=== PATIENT | male | born 1950 | race Caucasian/White ===

== ENCOUNTER 2022-01-28 12:15 | Outpatient (CLI) | payer MEDICARE, OTHER, SELFPAY ==
--- NOTE | ~2022-01-28 | XR_ITS ---
EXAMINATION: XR ankle LT 2V, XR foot LT 2V DATE: 01/28/2022 12:42 INDICATION: Left foot and ankle pain and swelling TECHNIQUE: 1. Anteroposterior and lateral view of the left ankle were obtained. 2. Dorsoplantar and lateral views of the left foot were obtained. COMPARISON: None. FINDINGS: Alignment of the left foot and ankle is normal. No fracture. Mild polyarticular osteoarthritis at the first metatarsophalangeal and a few tarsometatarsal and interphalangeal joints. Moderate-sized Achil les and plantar calcaneal spurs. No ankle joint effusion. Soft tissue swelling about the ankle, both medially and laterally. IMPRESSION: 1. No acute osseous abnormality. 2. Degenerative skeletal changes including mild polyarticular osteoarthritis in the left mid and fore foot and prominent calcaneal enthesophytes. Reviewed, dictated and finalized at location B. IMPRESSION: 1. No acute osseous abnormality. 2. Degenerative skeletal changes including mild polyarticular osteoarthritis in the left mid and forefoot and prominent calcaneal enthesophytes.
[2022-01-28 12:46] LABS: Basophils Absolute Auto 0.1 K/mm3 (0.0-0.1); Basophils Percent Auto 0.6 % (0.2-1.2); Eosinophils Absolute Auto 0.2 K/mm3 (0-0.3); Eosinophils Percent Auto 1.7 % (0-4.4); Hematocrit 36.2 % (42.0-52.0); Hemoglobin 12.7 g/dL (14.0-18.0); Immature Granulocyte Absolute 0.05 K/mm3 (0.00-0.031); Immature Granulocyte Percent A 0.5 % (0-0.5); Lymphocytes Absolute Auto 1.51 K/mm3 (0.9-3.2); Lymphocytes Percent Auto 14.2 % (18.3-44.2); Mean Corpuscular HGB Conc 35.1 g/dl (32-36); Mean Corpuscular Volume 88.3 fl (80-100); Mean Platelet Volume 9.4 fl (7.4-10.4); Monocytes Absolute Auto 1.2 K/mm3 (0.1-0.6); Monocytes Percent Auto 11.4 % (2.6-8.5); Neutrophils Absolute Auto 7.6 K/mm3 (1.3-6.7); Neutrophils Percent Auto 71.6 % (45.5-73.1); Platelet Count Result 306 k/mm3 (150-375); Red Cell Distribution Width 12.8 % (11.5-14.5); White Blood Count 10.6 K/mm3 (4.5-10.0)
[2022-01-28 13:02] LABS: Uric Acid 7.9 mg/dL (3.5-8.5)
== END 2022-01-28 12:16 | disposition home or self-care (01) ==
PROVIDERS: PCP Family Medicine; Visit Provider Nurse Practitioner Family
DX: M79.672 Pain in left foot (principal); M25.572 Pain in left ankle and joints of left foot; M19.072 Primary osteoarthritis, left ankle and foot; M77.32 Calcaneal spur, left foot
CPT/HCPCS: 36415; 73600; 73620; 84550; 85025

== ENCOUNTER 2022-03-16 20:48 | Observation (INO) | payer MEDICARE, OTHER, SELFPAY ==
--- NOTE | ~2022-03-16 | CT_ITS ---
EXAMINATION: CT abdomen pelvis wo con DATE: 03/16/2022 22:56 INDICATION: abd pain, vomiting, leukocytosis TECHNIQUE: Computed tomography (CT) of the abdomen and pelvis was performed without intravenous contr ast. Automated exposure control and iterative reconstruction technique were employed. The dose-length product was 688.49 mGy-cm. COMPARISON: None FINDINGS: Lower thorax: Unremarkable Liver: Normal. Biliary/Gallbladder: Gallbladder is normal. No bile duct dilation. Pancreas: No mass or duct dilation. Spleen: Normal. Adrenals:No mass. Kidneys: Right upper pole lesion too small to characterize but likely cyst. Right inferior pole hemor rhagic cyst. Left renal atrophy with hypodensities that are too small to characterize but likely repr esent cysts. GI tract: No small or large bowel dilation. Normal appendix. Diverticulosis without diverticulitis Mesentery/Peritoneum: No ascites, mass, or free air. Retroperitoneum: No mass. Atherosclerotic arterial calcifications. Pelvis: Bladder wall thickening, likely secondary to outlet obstruction from prostatomegaly. Soft Tissues: Soft tissues and body wall unremarkable. Bones: No acute osseous finding. IMPRESSION: No acute abdominopelvic process detected. Reviewed, dictated and finalized at location K.
[2022-03-16 21:03] VITALS: BP 106/79; PULSE 135; RESP 18; TEMP 36.5; O2SAT 100
[2022-03-16] MEDS: SODIUM CHLORIDE 0.9% IV 1,000 ML 999 ML IV CONT ×2 (21:42→23:49)
[2022-03-16 21:47] LABS: Basophils Absolute Auto 0.1 K/mm3 (0.0-0.1); Basophils Percent Auto 0.3 % (0.2-1.2); Hematocrit 45.9 % (42.0-52.0); Hemoglobin 14.8 g/dL (14.0-18.0); Immature Granulocyte Absolute 0.07 K/mm3 (0.00-0.031); Immature Granulocyte Percent A 0.4 % (0-0.5); Lymphocytes Absolute Auto 0.52 K/mm3 (0.9-3.2); Lymphocytes Percent Auto 3.1 % (18.3-44.2); Mean Corpuscular HGB Conc 32.2 g/dl (32-36); Mean Corpuscular Hemoglobin 28.8 pg (26-34); Mean Corpuscular Volume 89.5 fl (80-100); Mean Platelet Volume 9.7 fl (7.4-10.4); Monocytes Absolute Auto 1.1 K/mm3 (0.1-0.6); Monocytes Percent Auto 6.8 % (2.6-8.5); Neutrophils Absolute Auto 14.9 K/mm3 (1.3-6.7); Neutrophils Percent Auto 89.4 % (45.5-73.1); Platelet Count Result 375 k/mm3 (150-375); Red Blood Count 5.13 M/mm3 (4.6-6.20); Red Cell Distribution Width 13.9 % (11.5-14.5); White Blood Count 16.7 K/mm3 (4.5-10.0)
[2022-03-16 21:54] LABS: Alanine Aminotransferase 29 U/L (6-50); Albumin Level 5.6 g/dL (3.5-5.1); Alkaline Phosphatase 99 U/L (38-126); Anion Gap 18 mmol/L (8-16); Aspartate Amino Transferase 37 U/L (17-59); Bilirubin,Total 0.5 mg/dL (0.2-1.3); Blood Urea Nitrogen 24 mg/dL (9-20); Calcium 9.5 mg/dL (8.4-10.2); Carbon Dioxide 19 mmol/L (22-30); Chloride 102 mmol/L (98-107); Estimated CRCL calculation 23 ml/min; Estimated Glomerular Filt Rate 18; Glucose 195 mg/dL (65-110); Lipase 77 U/L (23-300); Potassium 4.2 mmol/L (3.4-5.0); Sodium 139 mmol/L (137-145)
[2022-03-16 22:11] VITALS: BP 134/79; PULSE 120; RESP 20; O2SAT 96
--- NOTE | 2022-03-16 22:21 | ED.NAVMDI ---
HPI - Nausea/Vomiting/Diarrhea General Chief complaint: Nausea/Vomiting/Diarrhea Stated complaint: Diarrhea (24 hours), vomiting Time Seen by Provider: 03/16/22 21:09 Source: patient Mode of arrival: ambulatory Limitations: no limitations History of Present Illness HPI Narrative: This is a 71 year old male that presents to the ER for vomiting and diarrhea. Ongoing for the last day. Reports he has not been able to keep anything down. Also reports myalgias. Denies fever, cough, dysuria, or hematochezia. Related Data Allergies Allergy/AdvReac Type Severity Reaction Status Date / Time NA Allergy Unknown Unknown Uncoded 03/07/22 08:18 NKA Allergy Unknown unk Uncoded 03/07/22 08:18 Review of Systems Review of Systems: CONSTITUTIONAL: Denies fever CARDIOVASCULAR: Denies chest pain RESPIRATORY: Denies dyspnea. GASTROINTESTINAL: Reports abdominal pain, nausea, vomiting, and diarrhea. GENITOURINARY: Denies dysuria or hematuria. MUSCULOSKELETAL: Reports myalgia. All systems reviewed & are unremarkable except as noted in HPI and below PMFSH Past Medical History Medical History (Updated 03/17/22 @ 00:07 by Margie Lezama PA-C) DM renal manif type II Hy kid NOS w cr kid I-IV Family History Family History Father Family history of lung cancer Mother Family history of cardiovascular disease Social History Social History Smoking packs per day: 3 Smoking cigarettes per day: 60.0 Years smoked: 32 Smoking pack-years: 96.00 Smoking status: Former smoker Tobacco type: cigarettes Second hand tobacco smoke exposure: No Smoking end date: 10/23/96 Alcohol intake: current Drinks per week: 10 Substance use: never Substance use type: does not use Gender identity (if verbalized by the patient): Male Sexual Orientation (if Verbalized by the Patient): Straight or Heterosexual Exam Narrative: GENERAL: Elderly, well-nourished, and in no acute distress. HEAD: Normocephalic, atraumatic. EYES: EOMI. ENT: Mucous membranes dry. CHEST: Clear to auscultation. No respiratory distress. No wheezes rales or rhonchi HEART: Regular rate and rhythm. No murmur heard. Normal peripheral pulses. ABDOMEN: Soft, nondistended, normal active bowel sounds. Mild tenderness to palpation throughout the abdomen, without guarding EXTREMITIES: Normal range of motion. No edema. SKIN: Warm, dry, no rash. NEURO: No focal deficits. Alert and oriented x3. PSYCH: Normal mood and affect Course Vital Signs Vital signs: Vital Signs Temperature 97.7 F 03/16/22 21:03 Pulse Rate 135 H 03/16/22 21:03 Respiratory Rate 18 03/16/22 21:03 Blood Pressure 106/79 03/16/22 21:03 Pulse Oximetry 100 03/16/22 21:03 Oxygen Delivery Room Air 03/16/22 21:03 Temperature 97.7 F 03/16/22 21:03 Pulse Rate 118 H 03/17/22 00:42 Respiratory Rate 16 03/17/22 00:42 Blood Pressure 106/67 03/17/22 00:42 Pulse Oximetry 100 03/17/22 00:42 Oxygen Delivery Room Air 03/16/22 21:03 MDM - Nausea/Vomiting/Diarrhea MDM Narrative Medical decision making narrative: Patient presents to the ER for nausea, vomiting and diarrhea. Present since yesterday. He is afebrile nontoxic-appearing. Tachycardic upon arrival, this normalized with IV fluid administration. CBC with leukocytosis to 16.7. Metabolic panel with evidence of dehydration and acute kidney injury. No concerning elevation in blood glucose. Influenza and COVID screens are negative. CT scan of the abdomen and pelvis is without acute findings. Patient will be admitted for further evaluation and management of dehydration and acute kidney injury. Spoke with hospitalist about patient and work-up who accepts admission Patient unable to give a urine sample at this time. Bladder scan did not show any evidence of retention. Patient refuses straight cath. Will continue to mon
[2022-03-16 22:25] VITALS: BP 108/81; PULSE 119; RESP 20; O2SAT 98
[2022-03-16 23:29] LABS: SARS-CoV-2 RNA PCR Negative
--- NOTE | 2022-03-16 23:41 | PC.NURSE ---
RN discussed with pt the need for a urine sample. Pt states If nothing goes in nothing can come out . Pt states I need something to drink in order to urinate . RN discussed with patient that he has gotten fluids pt still states I don't have the urge to urinate if I can get some water I should be able to go . Pt refused straight cath.
[2022-03-16 23:50] VITALS: BP 144/81; PULSE 118; RESP 20; O2SAT 98
[2022-03-17] VITALS (7 sets, daily range): BP systolic 106–134; BP diastolic 62–81; PULSE 80–118; RESP 16–18; TEMP 36.5–37.2; O2SAT 96–100
[2022-03-17 00:05] LABS: Influenza B QL RT-PCR Negative (Negative)
[2022-03-17 00:06] LABS: Influenza A QL RT-PCR Negative (Negative)
--- NOTE | 2022-03-17 01:24 | PC.NURSE ---
Pt still unable to urinate bladder scan done results 102ml.
[2022-03-17 03:11] LABS: Appearance Urine Clear (Clear); Bilirubin Urine 2+ (Negative); Blood Urine Trace-lysed (Negative); Color Urine Yellow (Yellow); Glucose Urine UA Negative (Negative); Ketones Urine Trace mg/dL (Negative); Leukocyte Esterase Ur Negative LEU/UL (Negative); Nitrate Urine Negative (Negative); Protein Urine 3+ mg/dL (Negative); Specific Grav Ur >= 1.030 (1.001-1.035); Urobilinogen Urine 0.2 mg/dL (<2.0)
[2022-03-17 03:31] LABS: Mucus Urine Few /lpf; Squamous Epithelial Cell Urine Moderate /hpf (Few); WBC Clumps Urine Present /HPF; WBC Urine 31-50 /hpf
[2022-03-17 03:33] LABS: Add Urine Microscopic? YES
[2022-03-17] MEDS: SODIUM CHLORIDE 0.9% IV 1,000 ML 125 ML IV CONT ×3 (03:35→20:19)
--- NOTE | 2022-03-17 04:07 | ADMGEN ---
This patient, Juanito Galeas, was admitted to [facility] Surg Room 312-01. Patient/family oriented to hospital policies and general routines including ID bracelet, bed and alarms, visiting hours, pain management, procedures, bathroom and other care routines, personal items, smoking policy, room service/diet, and visiting hours. Information on how to activate the Rapid Response Team has been discussed. Patient/Family are encouraged to report perceived risks to care and to ask questions if they do not understand what they are told or what they should do.
[2022-03-17 07:43] LABS: Glucose Point of Care 95 mg/dl (65-105)
[2022-03-17 08:09] LABS: Hematocrit 42.5 % (42.0-52.0); Hemoglobin 13.7 g/dL (14.0-18.0); Mean Corpuscular HGB Conc 32.2 g/dl (32-36); Mean Platelet Volume 9.4 fl (7.4-10.4); Platelet Count Result 293 k/mm3 (150-375); Red Blood Count 4.72 M/mm3 (4.6-6.20); White Blood Count 11.6 K/mm3 (4.5-10.0)
[2022-03-17 08:27] LABS: Anion Gap 13 mmol/L (8-16); Blood Urea Nitrogen 29 mg/dL (9-20); Calcium 8.1 mg/dL (8.4-10.2); Carbon Dioxide 19 mmol/L (22-30); Chloride 108 mmol/L (98-107); Estimated CRCL calculation 30 ml/min; Estimated Glomerular Filt Rate 24; Glucose 101 mg/dL (65-110); Potassium 4.3 mmol/L (3.4-5.0); Sodium 140 mmol/L (137-145)
[2022-03-17] MEDS: LEVOTHYROXINE SODIUM 100 MCG TABLET PO (09:14)
[2022-03-17] MEDS: LORATADINE 10 MG TABLET PO (09:15)
[2022-03-17] MEDS: PANTOPRAZOLE 40 MG TABLET PO (09:15)
[2022-03-17] MEDS: amLODIPine BESYLATE 5 MG TABLET PO (09:15)
--- NOTE | 2022-03-17 09:47 | PM.IMHP ---
H&P: HPI History of Present Illness Date/Time: 03/17/22 09:47 <Anne-Marie Parks PA-C - Last Filed: 03/17/22 10:28> Chief Complaint: Diarrhea <Anne-Marie Parks PA-C - Last Filed: 03/17/22 10:28> Narrative: Date of service: 03/17/2022 Juanito Galeas is a 71-year-old male with a history of type 2 diabetes mellitus, CKD stage III, hypertension, hypothyroidism, hyperlipidemia who presented to the emergency department on 03/16/2022 with complaints of vomiting and diarrhea. The patient states he had diarrhea for 24 hours. He states he had emesis for 20 hours it he could not keep anything down. He stated he became ?majorly dehydrated? and had ?head to toe muscle cramps. Because of this, he felt he had to seek emergency care. On presentation to the ED, he was afebrile, tachycardic, labs revealed leukocytosis and acute kidney injury on chronic kidney disease. CT of the abdomen/pelvis showed no acute abdominopelvic process. He has been admitted to the hospitalist service for observation. On my encounter, but he is beginning to feel better. No further episodes of emesis, though he has not eaten anything yet. He reports 2 episodes of loose stools so far today. Denies blood in his stool. Myalgias have resolved. Supervising physician for this history and physical is Dr. Janneth Romero. <Anne-Marie Parks PA-C - Last Filed: 03/17/22 10:28> Review of Systems Review of Systems: All systems reviewed with pertinent positives and negatives as per HPI. Additionally, patient denies fevers or chills. Denies shortness of breath, chest pain, palpitations. No dizziness, lightheadedness, weakness. He endorses chronic postnasal drip occasionally has cough related to this although no recent cough or worsened congestion. He denies abdominal pain. Denies sore throat. No headache. No joint pains. He denies dysuria, hematuria, urgency, or frequency. <Anne-Marie Parks PA-C - Last Filed: 03/17/22 10:28> PMFSH Past Medical History Medical History: Medical History (Updated 03/18/22 @ 16:24 by Anne-Marie Parks PA-C) Adult hypothyroidism CKD (chronic kidney disease) DM renal manif type II Hy kid NOS w cr kid I-IV Hyperlipidemia Hypertension Seasonal allergies <Anne-Marie Parks PA-C - Last Filed: 03/17/22 10:28> Surgical History Surgical History: Surgical History (Updated 03/17/22 @ 10:04 by Anne-Marie Parks PA-C) History of tonsillectomy and adenoidectomy <Anne-Marie Parks PA-C - Last Filed: 03/17/22 10:28> Family History Family History: Family History (Updated 03/17/22 @ 13:15 by Radha Juárez RN) Father Family history of lung cancer Mother Heart attack Grandparent Diabetes mellitus Sibling Diabetes mellitus <Anne-Marie Parks PA-C - Last Filed: 03/17/22 10:28> Social History Social History: Social History (Updated 03/17/22 @ 10:06 by Anne-Marie Parks PA-C) Social History: Mr. Galeas lives at home with his . He is independent in his daily activities. He is retired. His PCP is Dr. Koroma. He designates his , Ilana, to be his surrogate decision maker. He would like to be a full code. Smoking packs per day: 2 Smoking cigarettes per day: 40.0 Years smoked: 32 Smoking pack-years: 64.00 Smoking status: Former smoker Tobacco type: cigarettes Second hand tobacco smoke exposure: No Smoking end date: 10/23/96 Alcohol intake: current Alcohol use details: 4-5 beers/week Substance use: never Substance use type: does not use Living arrangements: with family Spiritual care concerns: No <Anne-Marie Parks PA-C - Last Filed: 03/17/22 10:28> Meds Home Medications and Allergies Home medications: Home Medications Medication Instructions Recorded Confirmed Type amlodipine 5 mg tablet 5 mg PO DAILY #90 tabs 08/09/21 03/17/22 Rx atorvastatin 10 mg tablet 10 mg PO DAILY #90 tabs 08/09/21 03/17/22 Rx levothyroxine 100 mcg tablet 100
[2022-03-17 11:40] LABS: Glucose Point of Care 94 mg/dl (65-105)
[2022-03-17 16:42] LABS: Glucose Point of Care 83 mg/dl (65-105)
[2022-03-17 20:31] LABS: Glucose Point of Care 92 mg/dl (65-105)
[2022-03-17] MEDS: ATORVASTATIN 10 MG TABLET PO (20:54)
[2022-03-17] MEDS: ASPIRIN 81 MG CHEWABLE TABLET PO (20:54)
[2022-03-18] MEDS: SODIUM CHLORIDE 0.9% IV 1,000 ML 125 ML IV CONT ×2 (02:00→05:47)
[2022-03-18] MEDS: LEVOTHYROXINE SODIUM 100 MCG TABLET PO (05:48)
[2022-03-18 06:00] VITALS: BP 132/76; PULSE 76; RESP 18; TEMP 36.6; O2SAT 98
[2022-03-18 07:05] LABS: Hemoglobin 11.8 g/dL (14.0-18.0); Mean Corpuscular HGB Conc 31.9 g/dl (32-36); Mean Corpuscular Hemoglobin 28.9 pg (26-34); Mean Corpuscular Volume 90.5 fl (80-100); Mean Platelet Volume 9.6 fl (7.4-10.4); Platelet Count Result 237 k/mm3 (150-375); Red Blood Count 4.09 M/mm3 (4.6-6.20); Red Cell Distribution Width 14.1 % (11.5-14.5); White Blood Count 6.2 K/mm3 (4.5-10.0)
[2022-03-18 07:17] LABS: Anion Gap 11 mmol/L (8-16); Blood Urea Nitrogen 19 mg/dL (9-20); Calcium 7.1 mg/dL (8.4-10.2); Carbon Dioxide 18 mmol/L (22-30); Chloride 111 mmol/L (98-107); Estimated CRCL calculation 48 ml/min; Estimated Glomerular Filt Rate 50; Glucose 95 mg/dL (65-110); Potassium 3.5 mmol/L (3.4-5.0); Sodium 140 mmol/L (137-145)
[2022-03-18 07:21] LABS: Magnesium 1.2 mg/dL (1.6-2.3)
[2022-03-18 07:55] LABS: Glucose Point of Care 93 mg/dl (65-105)
[2022-03-18] MEDS: MAGNESIUM SULF 2 GM/WATER 50ML 2 GM/50 ML BAG IVPB (08:57)
[2022-03-18] MEDS: PANTOPRAZOLE 40 MG TABLET PO (08:57)
[2022-03-18] MEDS: amLODIPine BESYLATE 5 MG TABLET PO (08:58)
[2022-03-18] MEDS: LORATADINE 10 MG TABLET PO (08:58)
[2022-03-18 11:44] LABS: Glucose Point of Care 89 mg/dl (65-105)
[2022-03-18 13:52] LABS: Magnesium 1.9 mg/dL (1.6-2.3)
[2022-03-18 14:00] VITALS: BP 146/63; PULSE 80; RESP 20; TEMP 36.3; O2SAT 98
--- NOTE | 2022-03-18 14:25 | P.DS_ITS ---
DS: Admitting Diagnosis Discharge Date 03/18/2022 <Anne-Marie DevonLauren Parks PA-C - Last Filed: 03/20/22 08:51> Admitting Diagnosis BRIELLE <Anne-Marie JLauren Parks PA-C - Last Filed: 03/20/22 08:51> DS: Discharge Diagnosis Discharge Diagnosis (1) Acute on chronic kidney failure: Code(s): N17.9 - Acute kidney failure, unspecified; N18.9 - Chronic kidney disease, unspecified <Anne-Marie Parks PA-C - Last Filed: 03/20/22 08:51> Status: Acute <Anne-Marie OsorioHUGH MoreC - Last Filed: 03/20/22 08:51> Assessment and Plan: Baseline creatinine 1.2-1.4. Creatinine elevated to 3.4 on presentation likely secondary to dehydration from N/V/D. * Renal function improved following IV fluid rehydration * Metformin and lisinopril held initially but resumed on discharge following improvement in renal function * Creatinine returned to baseline <Anne-Marie Parks PA-C - Last Filed: 03/20/22 08:51> (2) Nausea vomiting and diarrhea: Code(s): R11.2 - Nausea with vomiting, unspecified; R19.7 - Diarrhea, unspecified <Anne-Marie Parks PA-C - Last Filed: 03/20/22 08:51> Status: Acute <Anne-Marie OsorioHUGH MoreC - Last Filed: 03/20/22 08:51> Assessment and Plan: Patient presented after 24 hours of nausea, vomiting and diarrhea * CT abdomen/pelvis showed no acute findings * Patient with mild leukocytosis that resolved without intervention. Remained afebrile * COVID and influenza negative * Suspect viral etiology * Diet was advanced and he was able to tolerate oral intake. <Anne-Marie Parks PA-C - Last Filed: 03/20/22 08:51> (3) Abnormal urinalysis: Code(s): R82.90 - Unspecified abnormal findings in urine <Anne-Marie Parks PA-C - Last Filed: 03/20/22 08:51> Status: Acute <Anne-Marie DevonLauern Parks PA-C - Last Filed: 03/20/22 08:51> Assessment and Plan: UA slightly abnormal on presentation however patient was asymptomatic * Urine culture with growth of mixed hussein * No treatment required <Anne-Marie JGIULIANA More-C - Last Filed: 03/20/22 08:51> (4) Type 2 diabetes mellitus without complication, without long-term current use of insulin: Code(s): E11.9 - Type 2 diabetes mellitus without complications <Anne-Marie OsorioLauren Parks PA-C - Last Filed: 03/20/22 08:51> Status: Acute <Anne-Marie Jonesjacinto PA-C - Last Filed: 03/20/22 08:51> Assessment and Plan: A1c 5.5. Blood sugars well controlled during admission * Managed with Accu-Cheks ACHS, sliding scale insulin, hypoglycemic protocol * Metformin was held but resumed on discharge <Anne-Marie Parks PA-C - Last Filed: 03/20/22 08:51> (5) Hypertension: Code(s): I10 - Essential (primary) hypertension <Anne-Marie JLauren Parks PA-C - Last Filed: 03/20/22 08:51> Status: Acute <Anne-Marie OsorioLauren Parks PA-C - Last Filed: 03/20/22 08:51> Assessment and Plan: Blood pressure reviewed and were well controlled * Continue amlodipine * Lisinopril resumed <Anne-Marie Parks PA-C - Last Filed: 03/20/22 08:51> (6) Adult hypothyroidism: Code(s): E03.9 - Hypothyroidism, unspecified <Anne-Marie JLauren Parks PA-C - Last Filed: 03/20/22 08:51> Status: Acute <Anne-Marie OsorioLauren Parks PA-C - Last Filed: 03/20/22 08:51> Assessment and Plan: TSH within normal limits * Continue levothyroxine <Anne-Marie Parks PA-C - Last Filed: 03/20/22 08:51> (7) Hypomagnesemia: Code(s): E83.42 - Hypomagnesemia <Anne-Marie DevonLauren Parks PA-C - Last Filed: 03/20/22 08:51> Status: Acute <Anne-Marie DevonLauren Parks PA-C -
--- NOTE | 2022-03-18 14:25 | PM.DS ---
DS: Admitting Diagnosis Discharge Date 03/18/2022 <HUGH BerryC - Last Filed: 03/20/22 08:51> Admitting Diagnosis BRIELLE <Anne-Marie JHUGH MoreC - Last Filed: 03/20/22 08:51> DS: Discharge Diagnosis Discharge Diagnosis (1) Acute on chronic kidney failure: Code(s): N17.9 - Acute kidney failure, unspecified; N18.9 - Chronic kidney disease, unspecified <HUGH BerryC - Last Filed: 03/20/22 08:51> Status: Acute <Anne-Marie JHUGH MoreC - Last Filed: 03/20/22 08:51> Assessment and Plan: Baseline creatinine 1.2-1.4. Creatinine elevated to 3.4 on presentation likely secondary to dehydration from N/V/D. Renal function improved following IV fluid rehydration Metformin and lisinopril held initially but resumed on discharge following improvement in renal function Creatinine returned to baseline <HUGH BerryC - Last Filed: 03/20/22 08:51> (2) Nausea vomiting and diarrhea: Code(s): R11.2 - Nausea with vomiting, unspecified; R19.7 - Diarrhea, unspecified <HUGH BerryC - Last Filed: 03/20/22 08:51> Status: Acute <Anne-Marie OsorioHUGH MoreC - Last Filed: 03/20/22 08:51> Assessment and Plan: Patient presented after 24 hours of nausea, vomiting and diarrhea CT abdomen/pelvis showed no acute findings Patient with mild leukocytosis that resolved without intervention. Remained afebrile COVID and influenza negative Suspect viral etiology Diet was advanced and he was able to tolerate oral intake. <HUGH BerryC - Last Filed: 03/20/22 08:51> (3) Abnormal urinalysis: Code(s): R82.90 - Unspecified abnormal findings in urine <HUGH BerryC - Last Filed: 03/20/22 08:51> Status: Acute <HUGH BerryC - Last Filed: 03/20/22 08:51> Assessment and Plan: UA slightly abnormal on presentation however patient was asymptomatic Urine culture with growth of mixed hussein No treatment required <Anne-Marie Parks GIULIANA-C - Last Filed: 03/20/22 08:51> (4) Type 2 diabetes mellitus without complication, without long-term current use of insulin: Code(s): E11.9 - Type 2 diabetes mellitus without complications <Anne-Marie Parks PA-C - Last Filed: 03/20/22 08:51> Status: Acute <Anne-Marie Parks, PA-C - Last Filed: 03/20/22 08:51> Assessment and Plan: A1c 5.5. Blood sugars well controlled during admission Managed with Accu-Cheks ACHS, sliding scale insulin, hypoglycemic protocol Metformin was held but resumed on discharge <Anne-Marie Jonesjacinto PA-C - Last Filed: 03/20/22 08:51> (5) Hypertension: Code(s): I10 - Essential (primary) hypertension <Anne-Marie Parks, PA-C - Last Filed: 03/20/22 08:51> Status: Acute <Anne-Marie Parks, PA-C - Last Filed: 03/20/22 08:51> Assessment and Plan: Blood pressure reviewed and were well controlled Continue amlodipine Lisinopril resumed <Anne-Marie Parks PA-C - Last Filed: 03/20/22 08:51> (6) Adult hypothyroidism: Code(s): E03.9 - Hypothyroidism, unspecified <Anne-Marie Parks PA-C - Last Filed: 03/20/22 08:51> Status: Acute <Anne-Marie Parks, PA-C - Last Filed: 03/20/22 08:51> Assessment and Plan: TSH within normal limits Continue levothyroxine <Anne-Marie Parks, PA-C - Last Filed: 03/20/22 08:51> (7) Hypomagnesemia: Code(s): E83.42 - Hypomagnesemia <Anne-Marie Parks, PA-C - Last Filed: 03/20/22 08:51> Status: Acute <Anne-Marie Parks, PA-C - Last Filed: 03/20/22 08:51> Assessment and Plan: Magnesium was low, likely secondary to diarrhea Replaced and monitored. Levels improved <Anne-Marie Parks PA-C - Last Filed: 03/20/22 08:51> DS: Summary Hospital Course Hospital Course: Date of admission: 03/16/2022 Date of discharge: 03/18/2022 Juanito Galeas is a 71-year-old male with a history of
== END 2022-03-18 14:50 | disposition home or self-care (01) ==
LOC: ANHED 03-17 01:32 → ANH3MEDSUR 03-17 02:26
PROVIDERS: Physician Assistant; Admitting Provider Internal Medicine; Emergency Provider Emergency Medicine; PCP Family Medicine; Visit Provider Family Medicine
DX: R11.2 Nausea with vomiting, unspecified (principal); N17.9 Acute kidney failure, unspecified; N18.30 Chronic kidney disease, stage 3 unspecified; E11.22 Type 2 diabetes mellitus with diabetic chronic kidney disease; I12.9 Hypertensive chronic kidney disease with stage 1 through stage 4 chronic kidney disease, or unspecified chronic kidney disease; E03.9 Hypothyroidism, unspecified; E78.5 Hyperlipidemia, unspecified; Z87.891 Personal history of nicotine dependence; R82.90 Unspecified abnormal findings in urine; E83.42 Hypomagnesemia; Z20.822 Contact with and (suspected) exposure to COVID-19
CPT/HCPCS: 36415; 74176; 80048; 80053; 81001; 82948; 83690; 83735; 85025; 85027; 87086; 87088; 87502; 96360; 96361; 96365; 99285; A9270; C9803; G0378; J3475; J7030; U0003; U0005

== ENCOUNTER 2025-01-23 04:45 | Emergency (ER) | payer MEDICARE, OTHER, SELFPAY ==
--- NOTE | ~2025-01-23 | XR_ITS ---
Clinical Indication: Cough PA and lateral views of the chest: Comparison: None Findings: The lungs are clear, without evidence of focal consolidation or pleural effusion. Cardiome diastinal silhouette is within normal limits. Bones and soft tissues are unremarkable. Impression: Normal chest. Reviewed, dictated and finalized at location . Impression: Normal chest.
[2025-01-23 04:50] VITALS: BP 165/82; PULSE 86; RESP 20; TEMP 36.4; O2SAT 96
--- NOTE | 2025-01-23 04:52 | ED.SOB ---
HPI - SOB/Dyspnea General Chief Complaint: Upper Respiratory Infection Stated Complaint: cough, congestion, short of breath Time Seen by Provider: 01/23/25 04:56 History of Present Illness HPI Narrative: 74-year-old male with history of diabetes presenting to the emergency department with cough and congestion for last several days. He states that he has tried some Mucinex at home a couple hours ago without any relief of symptoms. Endorses a cough productive of clear mucus. Endorses some shortness of breath with a cough but no shortness of breath at rest or with exertion. No chest pain or chest pressure. No nausea or vomiting. He was otherwise in his normal state of health. No fever or chills. Denies any abdominal pain or back pain. Does not smoke. No history of COPD or asthma to his knowledge. Has not taken anything else besides the decongestant at home. Related Data Home Medications ?Medication ?Instructions ?Recorded ?Confirmed ?Last Taken ?Type Adult Low Dose Aspirin 81 mg PO DAILY 03/17/22 07/30/24 03/16/22 History Cinnamon 2,000 mg PO DAILY 03/17/22 07/30/24 03/16/22 History Fish Oil 4,800 mg PO DAILY 03/17/22 07/30/24 03/16/22 History Move Free Adormo 2 tablet PO DAILY 03/17/22 07/30/24 03/16/22 History Tart Gonzales Extract 1,000 mg PO DAILY 03/17/22 07/30/24 03/16/22 History Vitamin B-12 5,000 mcg PO DAILY 03/17/22 07/30/24 03/16/22 History cetirizine 10 mg capsule (Zyrtec) 10 mg PO DAILY 03/17/22 07/30/24 03/16/22 History Allergies Allergy/AdvReac Type Severity Reaction Status Date / Time No Known Allergies Allergy Verified 01/23/25 04:46 Review of Systems Review of Systems: As reviewed above in HPI [facility] Past Medical History Medical History Seasonal allergies Hyperlipidemia Hypertension CKD (chronic kidney disease) Hy kid NOS w cr kid I-IV DM renal manif type II Adult hypothyroidism Surgical History Surgical History History of tonsillectomy and adenoidectomy Family History Family History Father Family history of lung cancer Mother Heart attack Grandparent Diabetes mellitus Sibling Diabetes mellitus Social History Social History Social History: Mr. Galeas lives at home with his . He is independent in his daily activities. He is retired. His PCP is Dr. Koroma. He designates his , Ilana, to be his surrogate decision maker. He would like to be a full code. Smoking packs per day: 2 Smoking cigarettes per day: 40.0 Years smoked: 32 Smoking pack-years: 64.00 Smoking status: Former smoker Tobacco type: cigarettes Second hand tobacco smoke exposure: No Smoking end date: 10/23/96 Alcohol intake: current Alcohol use details: 4-5 beers/week Substance use: never Substance use type: does not use Do You Feel Safe in your Home?: Yes Lack of Transportation: No Lack of Food: Never True Current Housing: I Have Housing Concerned About Future Housing: No Difficulty Paying Gas/Electric Bills: No Difficulty Paying for Meds: No Currently Unemployed: YES Education: Don't Know Difficulty w/ Childcare or Family Care: No Living arrangements: with family Occupation/Education: retired Gender identity (if verbalized by the patient): Male Sexual Orientation (if Verbalized by the Patient): Straight or Heterosexual Spiritual care concerns: No Exam Narrative: GENERAL: [Well-appearing, well-nourished, and in no acute distress.] HEAD: [Normocephalic, atraumatic.] EYES: [PERRLA and EOMI.] ENT: Nares clear, no rhinorrhea or epistaxis. Mucous membranes moist. NECK: Supple. CHEST: [Clear to auscultation. No respiratory distress.] HEART: [Regular rate and rhythm]. No murmur heard. [Normal peripheral pulses.] ABDOMEN: [Soft, nondistended], [nontender], [No rigidity or guarding] EXTREMITIES: Normal range of motion. [No edema.] SKIN: Warm, dry, no rash. NEURO: [No focal deficits]. Alert and oriented [x3.] PSYCH: [Normal mood and affect.] Course Vital Signs Vital signs: Vital Signs Temperature 36.4 C L 01/23/25 04:50 Pulse Rate 86 01/23/25 04:50 Respiratory Rate 20 01/23/25 04:50 Blood Pressure 165/82 H 01/23/25 04:50 Pulse Oximetry 96 01/23/25 04:50 Oxygen Delivery Room Air 01/23/25 04:50 Temperature 36.4 C L 01/23/25 04:50 Pulse Rate 64 01/23/25 05:16 Respiratory Rate 18 01/23/25 05:16 Blood Pressure 136/73 01/23/25 05:16 Pulse Oximetry 95 01/23/25 05:16 Oxygen Delivery Room Air 01/23/25 05:08 MDM - SOB/Dyspnea MDM Narrative Medical decision making narrative: 74-year-old male with a past medical history including diabetes and chronic kidney disease, hypertension. He presents today with cough and congestion symptoms. Symptoms going on for several days including a productive cough of clear sputum. Endorses shortness of breath when he coughs. No shortness of breath at rest or with exertion. No chest pain or chest pressure. He is otherwise well-appearing not any acute distress. Vital signs were obtained he has a pulse ox of 95% on room air, heart rate in the 80s, blood pressure on the elevated side but has a history of hypertension. Clear breath sounds throughout without any wheezing, rhonchi or rales. Differential includes upper respiratory infection, viral syndrome such as COVID or influenza, RSV, lower respiratory tract infection such as pneumonia or bronchitis. Will evaluate him with multiple views of the chest and viral panel swabs obtained. He was given pseudoephedrine and Claritin for symptom control and re-evaluated. Chest x-ray shows no acute cardiopulmonary proces and a normal chest. COVID flu and RSV swabs were negative. Patient likely has another viral cause to his upper respiratory infection and he can be safely discharged home at this time and was provided some treatments to try at home and instructions to follow up with his regular doctor. Medical Records Attestation: I reviewed the patient's medical records. Lab Data Attestation: I reviewed the patient's lab results. Labs: Lab Results 01/23/25 Range/Units 04:57 Influenza A (RT-PCR) Negative (Negative) Influenza B (RT-PCR) Negative (Negative) RSV (RT-PCR) Negative (Negative) SARS-CoV-2 RNA (RT-PCR) Negative (Negative) Imaging Data Attestation: I personally reviewed and interpreted this imaging study as follows: My impression: Impressions Chest X-Ray 01/23/25 06:13 Impression: Normal chest. Discharge Plan Discharge Clinical Impression: Acute upper respiratory infection Patient Disposition: Home, Self-Care Condition: Stable Instructions: Antibiotic Form, Upper Respiratory Infection (ED) Additional Instructions: Your chest x-ray does not show any pneumonia or any active disease in the chest. Your viral swabs are negative for COVID and flu. You likely have another viral pathogen causing an upper respiratory infection and we will send you home with some symptomatic treatments. Take Tylenol and ibuprofen for any fevers or myalgias. Call your regular doctor for follow-up appointment. Return with any emergent concerns. Patient Language: Danish Prescriptions: New benzonatate 200 mg capsule 200 mg PO TID PRN (Reason: cough) Qty: 20 0RF fluticasone propionate [Flonase Allergy Relief] 50 mcg/actuation spray,suspension 1 spray intranasal BID Qty: 16 0RF Rx Instructions: administer into each nostril No Action Adult Low Dose Aspirin 81 mg PO DAILY Zyrtec 10 mg Capsule 10 mg PO DAILY Cinnamon 2,000 mg PO DAILY Fish Oil 4,800 mg PO DAILY Move Free Joint Health 2 tablet PO DAILY Tart Gonzales Extract 1,000 mg PO DAILY Vitamin B-12 5,000 mcg PO DAILY fluticasone propionate 50 mcg/actuation spray,suspension See Rx Instructions .ROUTE .COMPLEX Qty: 16 5RF Dose Instruction: INSTILL 1 SPRAY INRANASALLY DAILY INTO EACH NOSTRIL Rx Instructions: INSTILL 1 SPRAY INRANASALLY DAILY INTO EACH NOSTRIL lisinopril 20 mg tablet 20 mg PO BID Qty: 180 2RF metformin 500 mg tablet 500 mg PO BID Qty: 180 2RF atorvastatin 10 mg tablet 10 mg PO DAILY Qty: 90 2RF omeprazole 20 mg capsule,delayed release(DR/EC) 20 mg PO DAILY Qty: 90 2RF amlodipine 5 mg tablet 5 mg PO DAILY Qty: 90 2RF metoprolol succinate 25 mg tablet extended release 24 hr 25 mg PO DAILY Qty: 90 2RF levothyroxine 100 mcg tablet 100 mcg PO DAILY Qty: 90 2RF Follow-up/Referrals: Piero Koroma MD [Primary Care Provider] - Time of Disposition: 06:18
[2025-01-23 04:58] VITALS: O2SAT 98
[2025-01-23] MEDS: LORATADINE 10 MG TABLET PO (05:04)
[2025-01-23] MEDS: PSEUDOEPHEDRINE HCL 30 MG TABLET PO (05:04)
[2025-01-23 05:08] VITALS: BP 136/76; PULSE 71; PULSE 76; RESP 22; O2SAT 96; O2SAT 98
[2025-01-23 05:16] VITALS: BP 136/73; PULSE 64; RESP 18; O2SAT 95
--- OUTSIDE RECORDS SUMMARY | 2025-01-23 05:30 | XMS_ITS | Patient Health Record ---
Author Organization [facility] Address [address] [place] [address] Care Team Providers Care Assembler Adjuster Name Role Phone Zach Davidson MD Primary Care Provider Edgar Danilo Vicente Unavailable [phone] Reason For Referral No Information Medications Medication SIG (Take, Route, Frequency, Duration) Notes Start Date End Date Status Aspirin 81 MG 1 tablet Orally Once a day for 30 day(s) Active Cetirizine HCl 10 MG 1 tablet Orally Onc e a day for 30 day(s) Active Vitamin B12 1000 MCG 1 tablet Orally Onc e a day for 30 day(s) Active Omeprazole 20 MG 1 capsule Orally Onc e a day for 30 day(s) Active Fish Oil 1000 MG 1 capsule Orally Onc e a day for 30 day(s) Active metFORMIN HCl 500 MG 1 tablet with meals Orally Twice a day for 30 day(s) Active Cinnamon 500 MG bid Orally pt takes 1,000mg bid Active Atorvastatin Calcium 10 MG 1 tablet Oral ly Once a day for 30 day(s) Active Levothyroxine Sodium 112 MCG 1 tablet on an empty stomach in the morning Orally Once a day for 30 day(s) Active amLODIPine Besylate 5 MG 1 tablet Orally Once a day for 30 day(s) Active Lisinopril 20 MG 1 tablet Orally Once a day for 30 day(s) Active Niacin 500 MG 1 tablet with food Orally Once a day for 30 day(s) Active Move Free Joint [facility] Advance - as directed Orally Active Social History Tobacco Use: Social History Observation Description Date Details (start date - stop date) Former Smoker NA - NA Tobacco Use/Smoking Question Answer Notes Are you a former smoker Alcohol Screen Question Answer Notes Did you have a drink contain ing alcohol in the past year? Yes How often did you have a dri nk containing alcohol in the past year? 2 to 3 times a week (3 points) Points 3 Interpretation Negative Problems Problem Type SNOMED Code ICD Code Onset Dates Problem Status W/U Status Risk Notes Problem Type II diabetes mellitus without complication (960860207) Type 2 diabetes mellitus without complications (E11.9) Active confirmed Problem Mixed hyperlipidemia (737203633) Mixed hyperlipidemia (E78.2) Active confirmed Problem Essential hypertension (45353102) Essential (primary) hypertension (I10) Active confirmed Plan Of Treatment No Information Insurance Providers Payer Name Payer Address Payer Phone Subscriber Number Group Number Insured Name Patient Relationship to Insured Coverage Start Date Coverage End Date MEDICARE PART B [address] [address] [place] [phone] [id number] Juanito Galeas Self - patient is the insured Aet [address] [address] [place] [phone] [id number] Juanito Galeas Self - patient is the insured Medical (General) History Medical History History ICD Code Hypertension, benign Diabetes mellitus Hyperlipidemia Hypothyroidism Surgical History Surgery Date(Month/Year)
[2025-01-23 05:42] LABS: Influenza A QL RT-PCR Negative (Negative); Influenza B QL RT-PCR Negative (Negative); RSV RNA, RT-PCR Negative (Negative); SARS-CoV-2 RNA PCR Negative (Negative)
[2025-01-23 06:14] VITALS: BP 141/66; PULSE 63; RESP 17; O2SAT 97
== END 2025-01-23 06:32 | disposition home or self-care (01) ==
PROVIDERS: Emergency Provider Student in an Organized Health Care Education/Training Program; PCP Family Medicine
DX: J06.9 Acute upper respiratory infection, unspecified (principal); E78.5 Hyperlipidemia, unspecified; I12.9 Hypertensive chronic kidney disease with stage 1 through stage 4 chronic kidney disease, or unspecified chronic kidney disease; E11.22 Type 2 diabetes mellitus with diabetic chronic kidney disease; N18.9 Chronic kidney disease, unspecified; E03.9 Hypothyroidism, unspecified; Z87.891 Personal history of nicotine dependence; Z20.822 Contact with and (suspected) exposure to COVID-19
CPT/HCPCS: 71046; 87637; 99283; A9270

== ENCOUNTER 2025-05-30 13:08 | Emergency (ER) | payer MEDICARE, SELFPAY ==
[2025-05-30] VITALS (12 sets, daily range): BP systolic 130–150; BP diastolic 73–106; PULSE 81–88; RESP 16–28; TEMP 36.4; O2SAT 94–98
--- NOTE | ~2025-05-30 | CT_ITS ---
EXAMINATION: CTA chest PE protocol DATE: 05/31/2025 12:55 INDICATION: Shortness of breath TECHNIQUE: Computed tomography (CT) pulmonary angiogram of the chest was performed with 100 mL Omnipa que-350 intravenous contrast. Additional 3D reconstructions utilizing coronal maximum intensity proje ction (MIP) were performed. Automated exposure control and iterative reconstruction technique were em ployed. The dose-length product was 693.99 mGy-cm. COMPARISON: None FINDINGS: Moderate respiratory motion in the bilateral mid to lower lungs which decreases sensitivity and speci ficity, significantly in the smaller subsegmental pulmonary arteries. There is also some scattered st reak artifact most notable along the superior segmental lingular pulmonary artery. No definitive pulm onary emboli identified.. Mild dependent atelectasis in the bilateral lower lobes. No pneumonia, pulm onary edema or pleural effusion. Heart size is normal. Atherosclerotic coronary artery calcification. No pericardial effusion. Thoracic aorta is normal in caliber with no dissection. No pathologically e nlarged thoracic lymphadenopathy. Small bilateral renal cysts. Moderate left renal atrophy with smal l regions of more focal cortical scarring. Severe lower cervical and moderate thoracic spondylosis. IMPRESSION: 1. No definitive pulmonary emboli or other acute cardiopulmonary disease. Sensitivity for pulmonary e mboli is significantly limited in the subsegmental pulmonary arteries in the mid to lower lungs due t o respiratory motion. 2. Moderate left renal atrophy. Reviewed, dictated and finalized at location A. IMPRESSION: 1. No definitive pulmonary emboli or other acute cardiopulmonary disease. Sensi tivity for pulmonary emboli is significantly limited in the subsegmental pulmon gianni arteries in the mid to lower lungs due to respiratory motion. 2. Moderate left renal atrophy.
--- NOTE | ~2025-05-30 | CT_ITS ---
EXAMINATION: CT brain wo con DATE: 05/30/2025 15:14 INDICATION: Confusion TECHNIQUE: Computed tomography (CT) of the head was performed without intravenous contrast. The dose- length product was 1513.33 mGy-cm. Automated exposure control and iterative reconstruction technique were employed. COMPARISON: None FINDINGS: There are geographic areas of hypodensity involving the white matter of the bilateral parie sallie and temporal lobes as well as the right basal ganglia. No evidence for intracranial hemorrhage. N o ventriculomegaly or midline shift. Basilar cisterns are patent. Paranasal sinuses and mastoids are pneumatized. Generalized atrophy. IMPRESSION: 1. Multiple areas of geographic hypodensity including the parietal and temporal lobes as well as the right basal ganglia. No significant mass effect or associated hemorrhage. Differential diagnosis incl udes subacute or chronic infarcts, encephalitis and neoplasm including metastatic disease. Recommend MRI brain with and without contrast. Reviewed, dictated and finalized at location A. IMPRESSION: 1. Multiple areas of geographic hypodensity including the parietal and temporal lobes as well as the right basal ganglia. No significant mass effect or associ ated hemorrhage. Differential diagnosis includes subacute or chronic infarcts, encephalitis and neoplasm including metastatic disease. Recommend MRI brain wit h and without contrast.
--- NOTE | ~2025-05-30 | XR_ITS ---
EXAMINATION: XR chest 2V DATE: 05/30/2025 15:01 INDICATION: Shortness of breath TECHNIQUE: PA and lateral views of the chest were obtained. COMPARISON: Chest radiograph dated 01/23/2025 FINDINGS: The lungs remain clear with no focal airspace opacities, pulmonary edema, pleural effusion or pneumot horax. The cardiomediastinal silhouette is normal. Mild thoracic spondylosis with chronic mild anteri or wedging of a few lower thoracic vertebral bodies. IMPRESSION: 1. No acute cardiopulmonary disease. Reviewed, dictated and finalized at location A.
--- OUTSIDE RECORDS SUMMARY | 2025-05-30 13:10 | XMS_ITS | Clinical Summary ---
Author Organization [facility] Address [address] [place] [id number] Care Team Providers Care Sales Engagement Executive Name Role Phone Piero Koroma MD Primary Care Provider [phone] Allergies No known active allergies Medications No known medications Encounters Date Type Department Care Team Description 05/30/2025 6:05 AM CDT - 05/30/2025 7:47 AM CDT Emergency [facility] [place] [address] Sven Hutchins MD Shortness Of Breath Discharge Disposition: Home or Self Care (Routine Discharge) 05/30/2025 Travel from Last 3 Months Social History Tobacco Use Types Packs/Day Years Used Date Smoking Tobacco: Former Cigarettes Smokeless Tobacco: Never Tobacco Cessation:Counseling Given: Not Answered Sex and Gender Information Value Date Recorded Sex Assigned at Not on file Legal Sex Male 5:54 AM CDT Gender Identity Not on file Sexual Orientation Not on file Last Filed Vital Signs Vital Sign Reading Time Taken Comments Blood Pressure 149/71 05/30/2025 6:35 AM CDT Pulse 80 05/30/2025 6:50 AM CDT Temperature 36.7 C (98.1 F) 05/30/2025 6:51 AM CDT Respiratory Rate 14 05/30/2025 6:50 AM CDT Oxygen Saturation 94% 05/30/2025 6:50 AM CDT Inhaled Oxygen Concentration - - Weight 96.8 kg (213 lb 6.5 oz) 05/30/2025 6:51 A M CDT Height 185.4 cm (6' 1) 05/30/2025 6:51 AM CDT Body Mass Index 28.16 05/30/2025 6:51 AM CDT Plan of Treatment Health Maintenance Due Date Last Done Comments Colorectal Cancer Screening Colonoscopy (10 Years) 1950 Hepatitis C 1968 DTaP, Tdap and Td Vaccines (1 - Tdap) 1969 AAA SCREENING 2015 Annual Medicare Wellness Visit 2015 RSV Immunization or 60+ Years (1 - 1-dose 75+ series) 2025 Pneumococcal Vaccine: 50+ Years Completed 06/23/2020, 06/21/2019 Zoster Vaccines Completed 09/13/2024, 07/01/2024 COVID-19 Vaccine Completed 02/13/2025, , 01/08/2024, Additional history exists Meningococcal B Vaccine Aged Out No l onger eligible based on patient's age to complete this topic Meningococcal Vaccine Aged Out No daniele annette eligible based on patient's age to complete this topic RSV Immunizations Under 20 Months Aged Out No longer eligible based on patient's age to complete this topic Procedures Procedure Name Priority Date/Time Associated Diagnosis Comments XR CHEST PORTABLE STAT 05/30/2025 7:1 9 AM CDT INFLUENZA A & B STAT 05/30/2025 6:42 AM CDT CORONAVIRUS (COVID 19) STAT 05/30/2025 6:42 AM CDT THYROXINE, FREE (FT4) STAT 05/30/2025 6:42 AM CDT THYROID STIM HORMONE TSH STAT 05/30/2025 6:42 AM CDT PRO-BRAIN NATRIURETIC PEPTIDE STAT 05/30/2025 6:42 AM CDT TROPONIN, QUANT STAT 05/30/2025 6:42 AM CDT BASIC METABOLIC PANEL STAT 05/30/2025 6:42 AM CDT CBC W/DIFF AUTOMATED STAT 05/30/2025 6:42 AM CDT ECG 12-LEAD Routine 05/30/2025 6:30 AM CDT from Last 3 Months Results * XR CHEST PORTABLE (05/30/2025 7:19 AM CDT) Anatomical Region Laterality Modality Chest Radiographic Suzy ging 05/30/2025 7:21 AM CDT Impressions 05/30/2025 7:22 AM CDT IMPRESSION: No acute findings Ordered By: SVEN HUTCHINS Interpreted By: Liu Scott MD, 05/30/2025 7:21 AM Narrative 05/30/2025 7:22 AM CDT [place] [id number] SINGLE VIEW OF THE CHEST Clinical history: Shortness of breath Comparison: None A single view of the chest demonstrates the cardiac silhouette to be mildly enlarged. The pulmonary vessels are normally distributed. The Lungs are clear. No consolidations or effusions are seen. Procedure Note Liu Scott MD - 05/30/2025 [place] [id number] SINGLE VIEW OF THE CHEST Clinical history: Shortness of breath Comparison: None A single view of the chest demonstrates the cardiac silhouette to bemildly enlarged. The pulmonary vessels are normally distributed. The Lungsare clear. No consolidations or effusions are seen. IMPRESSION: No acute findings Ordered By: SVEN HUTCHINS Interpreted By: Liu Scott MD, 05/30/2025 7:21 AM Sven Hutchins MD GENERAL IMAGING Final Result * CORONAVIRUS (COVID 19) (05/30/2025 6:42 AM CDT) CORONAVIRUS SARS COV 2 RNA NEGATIVE NEGATIVE 05/30/2025 7:31 AM CDT [facility] Comment: NEGATIVE RESULTS DO NOT RULE OUT COVID 19 AND SHOULD NOT BE USED THE SOLE BASIS FOR TREATMENT OR PATIENT MANAGEMENT DECISIONS, INCLUDING INFECTION CONTROL DECISIONS. NEGATIVE RESULTS SHOULD BE CONSIDERED IN THE CONTEXT OF A PATIENT'S RECENT EXPOSURES, HISTORY AND THE PRESENCE OF CLINICAL SIGNS AND SYMPTOMS CONSISTENT WITH COVID 19. THE ID NOW COVID-19 2.0 TEST HAS BEEN AUTHORIZED BY THE FDA UNDER EAU FOR USE BY AUTHORIZED LABORATORIES. PERFORMED BY NUCLEIC ACID AMPLIFICATION FOR MOLECULAR QUALITATIVE DETECTION OF SARS-COV-2. SPECIMEN TYPE NASAL 05/30/2025 6:48 AM CDT [facility] NASAL STRUCTURE / Unknown 05/30/2025 6:42 AM CDT Sven Hutchins MD MICROBIOLOGY - GENERAL ORDERABL ES Final Result Performing Organization Address City/[facility]/ZIP Co de Phone Number [facility] [address] [place] [id number], * PRO-BRAIN NATRIURETIC PEPTIDE (05/30/2025 6:42 AM CDT) PRO-B TYPE NATRIURETIC PEPTIDE 66 <450 PG/ML 05/30/2025 7:35 AM CDT [facility] Comment: CUT POINTS ESTABLISHED BY [employer] ON NT PROBNP (ICON) STUDY (2006). AGE INDEPENDENT: <300 PG/ML HAS A 99% NEGATIVE PREDICTIVE VALUE FOR EXCLUDING ACUTE CHF <50 YEARS: >450 PG/ML IS CONSISTENT WITH ACUTE CHF 50-75 YEARS: >900 PG/ML IS CONSISTENT WITH ACUTE CHF >75 YEARS: >1800 PG/ML IS CONSISTENT WITH ACUTE CHF IN PATIENTS WITH RENAL INSUFFICIENCY (GFR <60), >1200 PG/ML YIELDS A DIAGNOSTIC SENSITIVITY AND SPECIFICITY OF 89% AND 72% FOR ACUTE CHF. 05/30/2025 6:42 AM CDT us Sven Hutchins MD LABORATORY Final Result Performing Organization Address City/[facility]/ZIP Co de Phone Number [facility] [address] [place] [address], [place] [phone] * INFLUENZA A & B (05/30/2025 6:42 AM CDT) Pathologist [facility] SPECIMEN TYPE NASOPHARYNGEAL SWAB 05/30/2025 6:56 AM CDT [facility] INFLUENZA A NEGATIVE NEGATIVE 05/30/2025 7:32 AM CDT [facility] INFLUENZA B NEGATIVE NEGATIVE 05/30/2025 7:32 AM CDT [facility] Comment: Interpretation: Negative for Influenza A and B. A negative result does not exclude influenza virus infection. If influenza is circulating in your community, a diagnosis of influenza should be considered based on a patient's clinical presentation and empiric antiviral treatment should be considered, if indicated. If more conclusive testing is needed for hospitalized inpatients, follow-up confirmatory testing with RT-PCR requires a separate order. NASOPHARYNGEAL SWAB / Unknown 05/30/2025 6:42 AM CDT Sven Hutchins MD MICROBIOLOGY - GENERAL ORDERABL ES Final Result [facility] [address] [place] [address], [place] [phone] * (ABNORMAL) BASIC METABOLIC PANEL (05/30/2025 6:42 AM CDT) Pathologist [facility] GLUCOSE 100(H) 70 - 99 MG/DL 05/30/2025 7:35 AM CDT [facility] BUN 19(H) 7 - 18 MG/DL 05/30/2025 7:35 AM CDT [facility] CREATININE S/P/B 1.45(H) 0.7 - 1.3 MG/DL 05/30/2025 7:35 AM CDT [facility] SODIUM S/P/B 134(L) 136 - 145 MMOL/L 05/30/2025 7:35 AM CDT [facility] POTASSIUM S/P/B 3.8 3.5 - 5.1 MMOL/L 05/30/2025 7:35 AM CDT [facility] CHLORIDE S/P/B 103 97 - 115 MMOL/L 05/30/2025 7:35 AM CDT [facility] CO2 24.9 21 - 32 MMOL/L 05/30/2025 7:35 AM CDT [facility] CALCIUM S/P/B 9.7 8.5 - 10.1 MG/DL 05/30/2025 7:35 AM CDT [facility] ANION GAP 6.1 2 - 10 MMOL/L 05/30/2025 7:35 AM CDT [facility] BUN CREATININE RATIO 13.1 6 - 26 05/30/2025 7:35 AM CDT [facility] GFR ESTIMATE 50(L) >90 ML/MIN/1.7 3 M2 05/30/2025 7:35 AM CDT [facility] Comment: NOTE: eGFR is not calculated for patients <18 years of age or gender unknown. This is an estimated GFR calculation using the new CKD EPI creatinine equation without race and so does not require a correction factor for race. This estimated GFR should not be used for calculating drug doses. 05/30/2025 6:42 AM CDT us Sven Hutchins MD LABORATORY Final Result [facility] [address] [place] [address], * (ABNORMAL) CBC W/DIFF AUTOMATED (05/30/2025 6:42 AM CDT) WBC 8.84 4.5 - 11.0 x10'3/uL 05/30/2025 7:11 AM CDT [facility] RBC 4.83 4.70 - 6.10 x10'6/uL 05/30/2025 7:11 AM CDT [facility] HGB 14.4 14.0 - 18.0 G/DL 05/30/2025 7:11 AM CDT [facility] HCT 42.0(L) 43.0 - 54.0 % 05/30/2025 7:11 AM CDT [facility] MCV 87.0 80.0 - 94.0 FL 05/30/2025 7:11 AM CDT [facility] MCH 29.8 27.0 - 31.0 PG 05/30/2025 7:11 AM CDT [facility] MCHC 34.3 32.0 - 36.0 G/DL 05/30/2025 7:11 AM CDT [facility] RDW 12.7 11.5 - 14.5 % 05/30/2025 7:11 AM CDT [facility] PLT 280 130 - 400 x10'3/uL 05/30/2025 7:11 AM CDT [facility] MPV 9.5 9.3 - 12.2 FL 05/30/2025 7:11 AM CDT [facility] DIFFERENTIAL TYPE AUTOMATED DIFFERENTIAL 05/30/2025 7:11 AM CDT [facility] NEUTROPHILS % 67.5 % 05/30/2025 7:11 AM CDT [facility] LYMPHOCYTES % 17.4 % 05/30/2025 7:11 AM CDT [facility] MONOCYTES % 12.0 % 05/30/2025 7:11 AM CDT [facility] EOSINOPHILS 1.8 % 05/30/2025 7:11 AM CDT [facility] BASOPHILS 0.8 % 05/30/2025 7:11 AM CDT [facility] IMMATURE GRANS % 0.5 % 05/30/20 7:11 AM CDT [facility] ABS. NEUTROPHILS 5.97 1.80 - 7.70 x10'3/uL 05/30/2025 7:11 AM CDT [facility] ABS. LYMPHOCYTES 1.54 1.00 - 4.80 x10'3/uL 05/30/2025 7:11 AM CDT [facility] ABS. MONOCYTES 1.06(H) 0.30 - 0.82 x10'3/uL 05/30/2025 7:11 AM CDT [facility] ABS. EOSINOPHILS 0.16 0.04 - 0.54 x10'3/uL 05/30/2025 7:11 AM CDT [facility] ABS. BASOPHILS 0.07 0.01 - 0.08 x10'3/uL 05/30/2025 7:11 AM CDT [facility] ABS. IMMATURE GRANULOCYTES 0.04 0.00 - 0.49 x10'3/uL 05/30/2025 7:11 AM CDT [facility] 05/30/2025 6:42 AM CDT Sven Hutchins MD LABORATORY Final Result [facility] [address] [place] [address], * THYROXINE, FREE (FT4) (05/30/2025 6:42 AM CDT) FREE T4 1.44 0.76 - 1.46 NG/DL 05/30/2025 7:35 AM CDT [facility] 05/30/2025 6:42 AM CDT Sven Hutchins MD LABORATORY Final Result Performing Organization Address City/[facility]/ZIP Co de Phone Number [facility] [address] [place] [address], [place] [phone] * TROPONIN, QUANT (05/30/2025 6:42 AM CDT) TROPONIN I HIGH SENSITIVITY 7 <79 ng/L 05/30/2025 7:35 AM CDT [facility] Comment: HIGH DOSES OF BIOTIN, TROPONIN-SPECIFIC AUTOANTIBODIES, AND ANTIBODY THERAPY CONTAINING HAMA MAY INTERFERE WITH THIS TEST RESULT. CORRELATION TO CLINICAL HISTORY AND PRESENTATION RECOMMENDED. 05/30/2025 6:42 AM CDT Sven Hutchins MD LABORATORY Final Result Performing Organization Address [facility] Co de Phone Number [facility] [address] [place] [address], [place] [phone] * (ABNORMAL) THYROID STIM HORMONE TSH (05/30/2025 6:42 AM CDT) TSH 0.224(L) 0.358 - 3.74 uIU/ML 05/30/2025 7:35 AM CDT [facility] Comment: HIGH DOSES OF BIOTIN MAY INTERFERE WITH THIS TEST RESULT. CORRELATION TO CLINICAL HISTORY AND PRESENTATION RECOMMENDED. 05/30/2025 6:42 AM CDT Sven Hutchins MD LABORATORY Final Result Performing Organization Address City/[facility]/ZIP Co de Phone Number [facility] [address] [place] [address], [place] [phone] * ECG 12 lead (05/30/2025 6:30 AM CDT) 05/30/2025 6:30 AM CDT Narrative [facility] - 05/30/2025 7:[address] [facility] Test Date: 2025-05-30 Pat Name: JERARDO GALEAS Department: 41 Room: [id number] Gender: M Welding Manager: : 1950 Requested By: SVEN HUTCHINS Order Number: [id number] Reading : Carlos Montoya Measurements Intervals [place] Rate: 83 P: 6 SC: 181 QRS: -19 QRSD: 97 T: 11 QT: 363 QTc: 428 Interpretive Statements SINUS RHYTHM VOLTAGE CRITERIA FOR LVH [MEETS CRITERIA IN ONE OF: R(aVL), S(V1), R(V5), R(V5/V6)+S(V1)] No previous ECG available for comparison Procedure Note Carlos Montoya MD - 05/30/2025 [facility] Test Date: 2025-05-30 Pat Name: JERARDO GALEAS Department: 41 Room: [id number] Gender: M Welding Manager: : 1950 Requested By: SVEN HUTCHINS Order Number: [id number] Reading MANAS Montoya Measurements Intervals [place] Rate: 83 P: 6 SC: 181 QRS: -19 QRSD: 97 T: 11 QT: 363 QTc: 428 Interpretive Statements SINUS RHYTHM VOLTAGE CRITERIA FOR LVH [MEETS CRITERIA IN ONE OF: R(aVL), S(V1),R(V5), R(V5/V6)+S(V1)] No previous ECG available for comparison us Sven Hutchins MD ECG ORDERABLES Final Result [facility] from Last 3 Months Insurance [employer] MEDICARE Care Teams Sales Engagement Executive Relationship Specialty Start Date End Date Piero Koroma MD [address] [place] [address] PCP - General FAMILY PRACTICE 05/30/25
--- OUTSIDE RECORDS SUMMARY | 2025-05-30 13:11 | XMS_ITS | Encounter Summary ---
Author Organization [facility] Address [address] [place] [address] Care Team Providers Care Rn Flight Name Role Phone Piero Koroma MD Primary Care Provider [phone] Reason for Visit * Reason Comments Shortness Of Breath Encounter Details Date Type Department Care Team (Late st Contact Info) Description 05/30/2025 6:05 AM CDT - 05/30/2025 7:47 AM CDT Emergency [facility] Emergency Room [place], [place] [id number] Sven Hutchins MD [address] [place], [place] [id number] Shortness Of Breath Discharge Disposition: Home or Self Care (Routine Discharge) Social History Tobacco Use Types Packs/Day Years Used Date Smoking Tobacco: Former Cigarettes Smokeless Tobacco: Never Tobacco Cessation:Counseling Given: Not Answered Sex and Gender Information Value Date Recorded Sex Assigned at Not on file Legal Sex Male 5:54 AM CDT Gender Identity Not on file Sexual Orientation Not on file documented as of this encounter Last Filed Vital Signs Vital Sign Reading [...] Mass Index 28.16 05/30/2025 6:51 AM CDT documented in this encounter Functional Status * Calculated C-SSRS Risk Score (Lifetime/Recent) Answer Date of Assessment Author Status No Risk Indicated 05/30/2025 6:40 AM CDT Natalie Pepe RN Active * [place] Suicide Severity Rating Scale (Screener/Recent Self-Report) Question Answer Date of Assessment Author Status 1. Wish to be (Past 1 Month) No 05/30/2025 6:40 AM CDT Estefany Pepe RN A ctive 2. Non-Specific Active Suicidal Thoughts (Past 1 Month) No 05/30/2025 6:40 AM CDT Estefany Pepe RN A ctive 6. Suicidal Behavior (Lifetime) No 05/30/2025 6:40 AM CDT Estefany Pepe RN A ctive documented as of this encounter Discharge Instructions * Discharge Instructions* Sven Hutchins MD - 05/30/2025 7:37 AM CDT Please schedule a follow-up appointment with your primary care provider in the next 2-3 days. Please return to the ED for any new or worsening symptoms or for any other health-related concern. * Attachments The following attachments cannot be sent through Care Everywhere. * Shortness of Breath (Dyspnea) Discharge Instructions (Eritrean) documented in this encounter ED Notes * Magnolia Wiley RN - 05/30/2025 7:17 AM CDT Came in to introduce myself as RN and went over account retention representative with pt. Pt endorses SOB when lying down as thereason he came to the ED. * Sven Hutchins MD - 05/30/2025 6:53 AM CDT [facility] [place] EMERGENCY DEPARTMENT ENCOUNTER Chief Complaint Chief Complaint Patient presents with Shortness Of Breath History of Present Illness Provider at Bedside Date/Time Event User Comments 05/30/25 0611 Provider at Bedside Assessing Patient AMANDA HUTCHINSKelle -- Jerardo Galeas is a 63-rxfm-gll-year-old male with a PMH of DM presents to the ED from home for evaluation of SOB with associated cough and congestion for 1.5-2 weeks. Patient reports associated headacheand fatigue. No chest pain, leg swelling, fever, or chills. Patient endorses sick contact from his . Patient has no hx of COPD or CHF. Patient is not anticoagulated and denies smoking. No historyof PE/DVT, no recent travel, no recent surgeries, no hemoptysis. No other complaints. He reports his shortness of breath is on and off. Medical History ALLERGIES: Review of patient's allergies indicates: No Known Allergies MEDICATIONS: Prior to Admission medications Not on File PAST MEDICAL HISTORY: Past Medical History[1] PAST SURGICAL HISTORY: Past Surgical History[2] FAMILY HISTORY: Family History[3] SOCIAL HISTORY: Social History[4] Review of Systems Review of Systems Constitutional: Positive for fatigue. HENT: Positive for congestion. Respiratory: Positive for cough and shortness of breath. Cardiovascular: Negative for chest pain and leg swelling. Gastrointestinal: Negative for abdominal pain, nausea and vomiting. See HPI for further details. All systems negative except as marked. Physical Exam Filed Vitals: 05/30/25 0640 05/30/25 0645 05/30/25 0650 05/30/25 0651 BP: Pulse: 83 80 80 Resp: 22 (!) 31 14 Temp: 98.1 ??F (36.7 ??C) TempSrc: Temporal SpO2: 95% 94% 94% Weight: 96.8 kg (213 lb 6.5 oz) Height: 1.854 m (6' 1) Physical Exam Vitals reviewed. Cardiovascular: Rate and Rhythm: Normal rate and regular rhythm. Pulmonary: Effort: Pulmonary effort is normal. Breath sounds: Normal breath sounds. No wheezing. Abdominal: Palpations: Abdomen is soft. Tenderness: There is no abdominal tenderness. Musculoskeletal: General: Normal range of motion. Neurological: Mental Status: He is alert and oriented to person, place, and time. Mental status is at baseline. Diagnostic Studies / Procedures ELECTROCARDIOGRAMS: Results for orders placed or performed during the hospital encounter of 05/30/25 [address] [facility] [address] [place] [address] Test Date: 2025-05-30 Pat Name: JERARDO GALEAS Department: 41 Room: [place] [address] Gender: M Rides Supervisor: : 1950 Requested By: SVEN HUTCHINS Order Number: [id number] Reading MD: Carlos Montoya Measurements Intervals [place] Rate: 83 P: 6 MO: 181 QRS: -19 QRSD: 97 T: 11 QT: 363 QTc: 428 Interpretive Statements SINUS RHYTHM VOLTAGE CRITERIA FOR LVH [MEETS CRITERIA IN ONE OF: R(aVL), S(V1), R(V5), R(V5/V6)+S(V1)] No previous ECG available for comparison LABORATORY STUDIES: Results for orders placed or performed during the hospital encounter of 05/30/25 CBC W/DIFF AUTOMATED Result Value Ref Range WBC 8.84 4.5 - 11.0 x10'3/uL RBC 4.83 4.70 - 6.10 x10'6/uL HGB 14.4 14.0 - 18.0 G/DL HCT 42.0 (L) 43.0 - 54.0 % MCV 87.0 80.0 - 94.0 FL MCH 29.8 27.0 - 31.0 PG MCHC 34.3 32.0 - 36.0 G/DL RDW 12.7 11.5 - 14.5 % PLT 280 130 - 400 x10'3/uL MPV 9.5 9.3 - 12.2 FL DIFFERENTIAL TYPE AUTOMATED DIFFERENTIAL NEUTROPHILS % 67.5 % LYMPHOCYTES % 17.4 % MONOCYTES % 12.0 % EOSINOPHILS 1.8 % BASOPHILS 0.8 % IMMATURE GRANS % 0.5 % ABS. NEUTROPHILS 5.97 1.80 - 7.70 x10'3/uL ABS. LYMPHOCYTES 1.54 1.00 - 4.80 x10'3/uL ABS. MONOCYTES 1.06 (H) 0.30 - 0.82 x10'3/uL ABS. EOSINOPHILS 0.16 0.04 - 0.54 x10'3/uL ABS. BASOPHILS 0.07 0.01 - 0.08 x10'3/uL ABS. IMMATURE GRANULOCYTES 0.04 0.00 - 0.49 x10'3/uL BASIC METABOLIC PANEL Result Value Ref Range GLUCOSE 100 (H) 70 - 99 MG/DL BUN 19 (H) 7 - 18 MG/DL CREATININE S/P/B 1.45 (H) 0.7 - 1.3 MG/DL SODIUM S/P/B 134 (L) 136 - 145 MMOL/L POTASSIUM S/P/B 3.8 3.5 - 5.1 MMOL/L CHLORIDE S/P/B 103 97 - 115 MMOL/L CO2 24.9 21 - 32 MMOL/L CALCIUM S/P/B 9.7 8.5 - 10.1 MG/DL ANION GAP 6.1 2 - 10 MMOL/L BUN CREATININE RATIO 13.1 6 - 26 GFR ESTIMATE 50 (L) >90 ML/MIN/1.73 M2 TROPONIN, QUANT Result Value Ref Range TROPONIN I HIGH SENSITIVITY 7 <79 ng/L PRO-BRAIN NATRIURETIC PEPTIDE Result Value Ref Range PRO-B TYPE NATRIURETIC PEPTIDE 66 <450 PG/ML THYROID STIM HORMONE TSH Result Value Ref Range TSH 0.224 (L) 0.358 - 3.74 uIU/ML THYROXINE, FREE (FT4) Result Value Ref Range FREE T4 1.44 0.76 - 1.46 NG/DL CORONAVIRUS (COVID 19) Specimen: NASAL Result Value Ref Range CORONAVIRUS SARS COV 2 RNA NEGATIVE NEGATIVE SPECIMEN TYPE NASAL INFLUENZA A & B Specimen: NASOPHARYNGEAL SWAB Result Value Ref Range SPECIMEN TYPE NASOPHARYNGEAL SWAB INFLUENZA A NEGATIVE NEGATIVE INFLUENZA B NEGATIVE NEGATIVE IMAGING STUDIES XR CHEST PORTABLE Final Result by User, [id number] (05/30 723) [address] [address] SINGLE VIEW OF THE CHEST Clinical history: Shortness of breath Comparison: None A single view of the chest demonstrates the cardiac silhouette to be mildly enlarged. The pulmonary vessels are normally distributed. The Lungs are clear. No consolidations or effusions are seen. IMPRESSION: No acute findings Ordered By: SVEN HUTCHINS Interpreted By: Liu Scott MD, 05/30/2025 7:21 AM ED Course / Medical Decision Making Medical Decision Making Patient presenting with shortness of breath on and off for the past 1.5 to 2 weeks. Will get basic blood work, EKG, chest x-ray, troponin, BNP. Will reassess Chest x-ray negative Troponin negative BNP 66 TSH 0.224 Free T4 1.4 COVID-negative Flu negative Pt reassured. Saturating 97% on RA. Will dc to follow up with his PCP Amount and/or Complexity of Data Reviewed Independent Historian: Details: Hx provided by patient and his External Data Reviewed: notes. Details: Old chart reviewed. Labs: ordered. Decision-making details documented in ED Course. Radiology: ordered and independent interpretation performed. Decision-making details documented in ED Course. ECG/medicine tests: ordered and independent interpretation performed. Decision- making details documented in ED Course. Risk Prescription drug management. Decision regarding hospitalization. Pulse Ox Interpretation: Saturation: 94 (%) Oxygen Delivery: room air Interpretation: No acute hypoxia at this time. Rhythm strip interpretation: Rhythm sinus rate 80. No ectopy. Data reviewed: All current, pertinent and timely studies (laboratory, imaging, and procedures) wereordered and results reviewed by Sven Hutchins MD unless otherwise noted. Triage notes and available nursing notes reviewed. Previous medical record reviewed when available. Repeat vital signs reviewed. Medications - No data to display Clinical Impression SOB (shortness of breath) (Primary) There are no discharge medications for this patient. Disposition: Discharge Follow-Up: PIERO KOROMA MD I, Vivian Bain, acting as a scribe, am personally taking down the notes in the presence of Sven Hutchins MD. Take no action on this note until reviewed and authenticated by the physician. [1] Past Medical History: Diagnosis Date Diabetes mellitus ([facility]) [2] History reviewed. No pertinent surgical history. [3] No family history on file. [4] Social History Tobacco Use Smoking status: Former Types: Cigarettes Smokeless tobacco: Never Sven Hutchins MD 05/30/25 0741 * Kathia Noble RN - 05/30/2025 6:52 AM CDT Pt presents to ED accompanied with from home with c/o cough and nasal congestion for 1.5 weeks. Pt denies SOB or chest pain. Pt has been taking tylenol cold medication with no relief. documented in this encounter Plan of Treatment Not on file documented as of this encounter Procedures Procedure Name Priority Date/Time Associated Diagnosis Comments XR CHEST PORTABLE STAT 05/30/2025 7:1 9 AM CDT CORONAVIRUS (COVID 19) STAT 05/30/2025 6:42 AM CDT PRO-BRAIN NATRIURETIC PEPTIDE STAT 05/30/2025 6:42 AM CDT INFLUENZA A & B STAT 05/30/2025 6:42 AM CDT BASIC METABOLIC PANEL STAT 05/30/2025 6:42 AM CDT CBC W/DIFF AUTOMATED STAT 05/30/2025 6:42 AM CDT THYROXINE, FREE (FT4) STAT 05/30/2025 6:42 AM CDT TROPONIN, QUANT STAT 05/30/2025 6:42 AM CDT THYROID STIM HORMONE TSH STAT 05/30/2025 6:42 AM CDT ECG 12-LEAD Routine 05/30/2025 6:30 AM CDT documented in this encounter Results * XR CHEST PORTABLE (05/30/2025 7:19 AM CDT) Anatomical Region Laterality Modality Chest Radiographic Suzy ging 05/30/2025 7:21 AM CDT Impressions 05/30/2025 7:22 AM CDT IMPRESSION: No acute findings Ordered By: SVEN HUTCHINS Interpreted By: Liu Scott MD, 05/30/2025 7:21 AM Narrative 05/30/2025 7:22 AM CDT [place] [address] SINGLE VIEW OF THE CHEST Clinical history: Shortness of breath Comparison: None A single view of the chest demonstrates the cardiac silhouette to be mildly enlarged. The pulmonary vessels are normally distributed. The Lungs are clear. No consolidations or effusions are seen. Procedure Note Liu Scott MD - 05/30/2025 [place] [address] SINGLE VIEW OF THE CHEST Clinical history: [...] Hutchins MD GENERAL IMAGING Final Result * INFLUENZA A & B (05/30/2025 6:42 AM CDT) SPECIMEN TYPE NASOPHARYNGEAL SWAB 05/30/2025 6:56 AM CDT [facility] INFLUENZA A NEGATIVE NEGATIVE 05/30/2025 7:32 AM CDT [facility] INFLUENZA B NEGATIVE NEGATIVE 05/30/2025 7:32 AM CDT [facility] Comment: Interpretation: Negative for Influenza A [...] SWAB / Unknown 05/30/2025 6:42 AM CDT Bannerkelle Hutchins MD MICROBIOLOGY - GENERAL ORDERABL ES Final Result Performing Organization Address City/[facility]/ZIP Co de Phone Number [facility] [address] [place] [phone], * CORONAVIRUS (COVID 19) (05/30/2025 6:42 AM CDT) [facility] CORONAVIRUS SARS COV 2 RNA NEGATIVE NEGATIVE 05/30/2025 7:31 AM CDT [facility] Comment: NEGATIVE RESULTS DO NOT RULE [...] SPECIMEN TYPE NASAL 05/30/2025 6:48 AM CDT [facility] NASAL STRUCTURE / Unknown 05/30/2025 6:42 AM CDT Sven Hutchins MD MICROBIOLOGY - GENERAL ORDERABL ES Final Result Performing Organization Address City/[facility]/ZIP Co de Phone Number [facility] [address] [place] [address], [place] [phone] * THYROXINE, FREE (FT4) (05/30/2025 6:42 AM CDT) [facility] FREE T4 1.44 0.76 - 1.46 NG/DL 05/30/2025 7:35 AM CDT [facility] 05/30/2025 6:42 AM CDT Sven Hutchins MD LABORATORY Final Result Performing Organization Address [facility] Co de Phone Number [facility] [address] [place] [address], [place] [phone] * (ABNORMAL) THYROID STIM HORMONE TSH (05/30/2025 6:42 AM CDT) TSH 0.224(L) 0.358 - 3.74 uIU/ML 05/30/2025 7:35 AM CDT [facility] Comment: HIGH DOSES OF BIOTIN MAY INTERFERE WITH THIS TEST RESULT. CORRELATION TO CLINICAL HISTORY AND PRESENTATION RECOMMENDED. 05/30/2025 6:42 AM CDT Sven Hutchins MD LABORATORY Final Result Performing Organization Address [facility] Co de Phone Number [facility] [address] [place] [address], [place] [phone] * PRO-BRAIN NATRIURETIC PEPTIDE (05/30/2025 6:42 AM CDT) PRO-B TYPE NATRIURETIC PEPTIDE 66 <450 PG/ML 05/30/2025 7:35 AM CDT [facility] Comment: CUT POINTS ESTABLISHED BY INTERNATIONAL [...] FOR ACUTE CHF. 05/30/2025 6:42 AM CDT Sven Hutchins MD LABORATORY Final Result Performing Organization Address City/[facility] Co de Phone Number [facility] [address] [place] [address], [place] [phone] * TROPONIN, QUANT (05/30/2025 6:42 AM CDT) TROPONIN I HIGH SENSITIVITY 7 <79 ng/L 05/30/2025 7:35 AM CDT [facility] Comment: HIGH DOSES OF BIOTIN, TROPONIN-SPECIFIC AUTOANTIBODIES, AND ANTIBODY THERAPY CONTAINING HAMA MAY INTERFERE WITH THIS TEST RESULT. CORRELATION TO CLINICAL HISTORY AND PRESENTATION RECOMMENDED. 05/30/2025 6:42 AM CDT Sven Hutchins MD LABORATORY Final Result Performing Organization Address [facility] Co de Phone Number [facility] [address] [place] [address], [place] [phone] * (ABNORMAL) BASIC METABOLIC PANEL (05/30/2025 6:42 AM CDT) GLUCOSE 100(H) 70 - 99 MG/DL 05/30/2025 7:35 AM CDT [facility] BUN 19(H) 7 - 18 MG/DL 05/30/2025 7:35 AM CDT [facility] CREATININE S/P/B 1.45(H) 0.7 - 1.3 MG/DL 05/30/2025 7:35 AM CDT [facility] SODIUM S/P/B 134(L) 136 - 145 MMOL/L 05/30/2025 7:35 AM CDT [facility] POTASSIUM S/P/B 3.8 3.5 - 5.1 MMOL/L 05/30/2025 7:35 AM CDT [facility] CHLORIDE S/P/B 103 97 - 115 MMOL/L 05/30/2025 7:35 AM CDT [facility] CO2 24.9 21 - 32 MMOL/L 05/30/2025 7:35 AM CDT [facility] CALCIUM S/P/B 9.7 8.5 - 10.1 MG/DL 05/30/2025 7:35 AM CDT [facility] ANION GAP 6.1 2 - 10 MMOL/L 05/30/2025 7:35 AM CDT [facility] BUN CREATININE RATIO 13.1 6 - 26 05/30/2025 7:35 AM CDT [facility] GFR ESTIMATE 50(L) >90 ML/MIN/1.7 3 M2 05/30/2025 7:35 AM CDT [facility] Comment: NOTE: eGFR is not calculated for patients <18 years of age or gender unknown. This is an estimated GFR calculation using the new CKD EPI creatinine equation without race and so does not require a correction factor for race. This estimated GFR should not be used for calculating drug doses. 05/30/2025 6:42 AM CDT Sven Hutchins MD LABORATORY Final Result [facility] [address] [place] [address], [place] [phone] * (ABNORMAL) CBC W/DIFF AUTOMATED (05/30/2025 6:42 AM CDT) WBC 8.84 4.5 - 11.0 x10'3/uL 05/30/2025 7:11 AM CDT [facility] RBC 4.83 4.70 - 6.10 x10'6/uL 05/30/2025 7:11 AM CDT [facility] HGB 14.4 14.0 - 18.0 G/DL 05/30/2025 7:11 AM CDT [facility] HCT 42.0(L) 43.0 - 54.0 % 05/30/2025 7:11 AM CDT [facility] MCV 87.0 80.0 - 94.0 FL 05/30/2025 7:11 AM CDT [facility] MCH 29.8 27.0 - 31.0 PG 05/30/2025 7:11 AM CDT [facility] MCHC 34.3 32.0 - 36.0 G/DL 05/30/2025 7:11 AM CDT [facility] RDW 12.7 11.5 - 14.5 % 05/30/2025 7:11 AM CDT [facility] PLT 280 130 - 400 x10'3/uL 05/30/2025 7:11 AM CDT [facility] MPV 9.5 9.3 - 12.2 FL 05/30/2025 7:11 AM CDT [facility] DIFFERENTIAL TYPE AUTOMATED DIFFERENTIAL 05/30/2025 7:11 AM CDT [facility] NEUTROPHILS % 67.5 % 05/30/2025 7:11 AM CDT [facility] LYMPHOCYTES % 17.4 % 05/30/2025 7:11 AM CDT [facility] MONOCYTES % 12.0 % 05/30/2025 7:11 AM CDT [facility] EOSINOPHILS 1.8 % 05/30/2025 7:11 AM CDT [facility] BASOPHILS 0.8 % 05/30/2025 7:11 AM CDT [facility] IMMATURE GRANS % 0.5 % 05/30/20 7:11 AM CDT [facility] ABS. NEUTROPHILS 5.97 1.80 - 7.70 x10'3/uL 05/30/2025 7:11 AM CDT [facility] ABS. LYMPHOCYTES 1.54 1.00 - 4.80 x10'3/uL 05/30/2025 7:11 AM CDT [facility] ABS. MONOCYTES 1.06(H) 0.30 - 0.82 x10'3/uL 05/30/2025 7:11 AM CDT [facility] ABS. EOSINOPHILS 0.16 0.04 - 0.54 x10'3/uL 05/30/2025 7:11 AM CDT [facility] ABS. BASOPHILS 0.07 0.01 - 0.08 x10'3/uL 05/30/2025 7:11 AM CDT [facility] ABS. IMMATURE GRANULOCYTES 0.04 0.00 - 0.49 x10'3/uL 05/30/2025 7:11 AM CDT [facility] 05/30/2025 6:42 AM CDT us Sven Hutchins MD LABORATORY Final Result [facility] [address] [place] [address], [place] [phone] * ECG 12 lead (05/30/2025 6:30 AM CDT) 05/30/2025 6:30 AM CDT Narrative [facility] - 05/30/2025 7:[address] CDT [address] Test Date: 2025-05-30 Pat Name: JERARDO GALEAS Department: 41 Room: [id number] Gender: M Rides Supervisor: : 1950 Requested By: SVEN HUTCHINS Order Number: [id number] Reading MANAS Montoya Measurements Intervals [place] Rate: 83 P: 6 MO: 181 QRS: -19 QRSD: 97 T: 11 QT: 363 QTc: 428 Interpretive Statements SINUS RHYTHM VOLTAGE CRITERIA FOR LVH [MEETS CRITERIA IN ONE OF: R(aVL), S(V1), R(V5), R(V5/V6)+S(V1)] No previous ECG available for comparison Procedure Note Carlos Montoya MD - 05/30/[address] [facility] [facility] Test Date: 2025-05-30 Pat Name: JERARDO GALEAS Department: 41 Room: [id number] Gender: M Rides Supervisor: : 1950 Requested By: SVEN HUTCHINS Order Number: [id number] Reading MANAS Montoya Measurements Intervals [place] Rate: 83 P: 6 MO: 181 QRS: -19 QRSD: 97 T: 11 QT: 363 QTc: 428 Interpretive Statements SINUS RHYTHM VOLTAGE CRITERIA FOR LVH [MEETS CRITERIA IN ONE OF: R(aVL), S(V1),R(V5), R(V5/V6)+S(V1)] No previous ECG available for comparison us Sven Hutchins MD ECG ORDERABLES Final Result [facility] documented in this encounter Visit Diagnoses Diagnosis SOB (shortness of breath)- Primary Shortness of breath documented in this encounter Additional Health Concerns Infection Onset Date Last Indicated Resolved Time COVID-19 Rule Out 05/30/2025 05/30/2025 05/30/2025 7:32 AM CDT Respiratory Rule Out 05/30/2025 05/30/2025 025 7:32 AM CDT documented as of this encounter Care Teams Rn Flight Relationship Specialty Start Date End Date Piero Koroma MD [address] [facility] [address] [place] [address] PCP - General FAMILY PRACTICE 05/30/25 documented as of this encounter
--- OUTSIDE RECORDS SUMMARY | 2025-05-30 13:11 | XMS_ITS | Encounter Summary ---
Author Organization [facility] Address [address] [place], [place] [id number] Care Team Providers Care Xm1 Tank Driver Name Role Phone Piero Koroma MD Primary Care Provider [phone] Encounter Details Date Type Department Care Team (Latest Contact Info) Description 05/30/2025 Travel Social History Tobacco Use Types Packs/Day Years Used Date Smoking Tobacco: Former Cigarettes Smokeless Tobacco: Never Sex and Gender Information Value Date Recorded Sex Assigned at Not on file Legal Sex Male 5:54 AM CDT Gender Identity Not on file Sexual Orientation Not on file documented as of this encounter Functional Status * Calculated C-SSRS Risk Score (Lifetime/Recent) Answer Date of Assessment Author Status No Risk Indicated 05/30/2025 6:40 AM CDT Natalie Pepe RN Active * [place] Suicide Severity Rating Scale (Screener/Recent Self-Report) Question Answer Date of Assessment Author Status 1. Wish to be (Past 1 Month) No 05/30/2025 6:40 AM CDT Estefany Pepe RN A ctive 2. Non-Specific Active Suicidal Thoughts (Past 1 Month) No 05/30/2025 6:40 AM VIOLETAT Estefany Pepe RN A ctive 6. Suicidal Behavior (Lifetime) No 05/30/2025 6:40 AM CDT Estefany Pepe RN A ctive documented as of this encounter Plan of Treatment Not on file documented as of this encounter Visit Diagnoses Not on filedocumented in this encounter Additional Health Concerns Infection Onset Date Last Indicated Resolved Time COVID-19 Rule Out 05/30/2025 05/30/2025 05/30/2025 7:32 AM CDT Respiratory Rule Out 05/30/2025 05/30/2025 025 7:32 AM CDT documented as of this encounter Care Teams Xm1 Tank Driver Relationship Specialty Start Date End Date Piero Koroma MD [address] [place] [id number] PCP - General FAMILY PRACTICE 05/30/25 documented as of this encounter
--- OUTSIDE RECORDS SUMMARY | 2025-05-30 13:11 | XMS_ITS | Patient Health Record ---
Author Organization [facility] Address [address] [place] [address] Care Team Providers Care Kayak Maker Name Role Phone Zach Dvaidson MD Primary Care Provider Edgar Danilo Vicente Unavailable [phone] Reason For Referral No Information Medications Medication SIG (Take, Route, Frequency, Duration) Notes Start Date End Date Status Aspirin 81 MG 1 tablet Orally Once a day; Duration: 30 day(s) Active Cetirizine HCl 10 MG 1 tablet Orally Onc e a day; Duration: 30 day(s) Active Vitamin B12 1000 MCG 1 tablet Orally Onc e a day; Duration: 30 day(s) Active Omeprazole 20 MG 1 capsule Orally Onc e a day; Duration: 30 day(s) Active Fish Oil 1000 MG 1 capsule Orally Onc e a day; Duration: 30 day(s) Active metFORMIN HCl 500 MG 1 tablet with meals Orally Twice a day; Duration: 30 day(s) Active Cinnamon 500 MG bid Orally pt takes 1,000mg bid Active Atorvastatin Calcium 10 MG 1 tablet Oral ly Once a day; Duration: 30 day(s) Active Levothyroxine Sodium 112 MCG 1 tablet on an empty stomach in the morning Orally Once a day; Duration: 30 day(s) Active amLODIPine Besylate 5 MG 1 tablet Orally Once a day; Duration: 30 day(s) Active Lisinopril 20 MG 1 tablet Orally Once a day; Duration: 30 day(s) Active Niacin 500 MG 1 tablet with food Orally Once a day; Duration: 30 day(s) Active Move Free [facility] - as directed Orally Active Social [...] Problem Type II diabetes mellitus without complication (707925403) Type 2 diabetes mellitus without complications (E11.9) Active confirmed Problem Mixed hyperlipidemia (558258960) Mixed hyperlipidemia (E78.2) Active confirmed Problem Essential hypertension (51442235) Essential (primary) hypertension (I10) Active confirmed Plan Of Treatment No Information Insurance Providers Payer Name Payer Address Payer Phone Subscriber Number Group Number Insured Name Patient Relationship to Insured Coverage Start Date Coverage End Date MEDICARE PART B [address] [place] [address] [phone] [id number] Juanito Galeas Self - patient is the insured [employer] [address] [address] [place] [address] [id number] Juanito Galeas Self - patient is the insured Medical (General) History Medical History History ICD Code Hypertension, benign Diabetes mellitus Hyperlipidemia Hypothyroidism Surgical History Surgery Date(Month/Year)
--- NOTE | 2025-05-30 14:38 | ECG_ITS ---
Test Date: 2025-05-30 14:48:19 Measurements Intervals [place] Rate: 85 P: 8 [place]: 182 QRS: -20 QRSD: 97 T: 15 QT: 370 QTc: 440 Interpretive Statements SINUS RHYTHM LEFT VENTRICULAR HYPERTROPHY BORDERLINE ECG No previous ECG available for comparison Electronically Signed On 05-30-2025 15:05:28 CDT by Chris Louie D.O.
[2025-05-30 14:54] LABS: Hematocrit 43.9 % (42.0-52.0); Hemoglobin 14.5 g/dL (14.0-18.0); Immature Granulocyte Percent A 0.3 % (0-0.5); Lymphocytes Absolute Auto 1.57 K/mm3 (0.9-3.2); Mean Corpuscular HGB Conc 33.0 g/dl (32-36); Mean Corpuscular Hemoglobin 29.3 pg (26-34); Mean Corpuscular Volume 88.7 fl (80-100); Nucleated Red Blood Cells Absolute Auto 0.000 K/mm3 (0.0-0.012); Nucleated Red Blood Cells Perc 0.0 % (0.0-0.2); Platelet Count Result 282 k/mm3 (150-375); Red Blood Count 4.95 M/mm3 (4.6-6.20); White Blood Count 7.5 K/mm3 (4.5-10.0)
[2025-05-30 15:04] LABS: Alanine Aminotransferase 26 U/L (6-50); Albumin Level 4.7 g/dL (3.5-5.1); Alkaline Phosphatase 69 U/L (38-126); Anion Gap 15 mmol/L (4-12); Aspartate Amino Transferase 43 U/L (17-59); Bilirubin,Total 1.2 mg/dL (0.2-1.3); Blood Urea Nitrogen 18 mg/dL (9-20); Calcium 9.7 mg/dL (8.4-10.2); Carbon Dioxide 23 mmol/L (22-30); Chloride 99 mmol/L (98-107); Estimated CRCL calculation 48 ml/min; Estimated Glomerular Filt Rate 51; Glucose 98 mg/dL (65-110); Lipase 109 U/L (23-300); Potassium 4.4 mmol/L (3.4-5.0); Sodium 137 mmol/L (137-145); Total Protein 8.4 g/dL (6.3-8.2)
[2025-05-30 15:08] LABS: INR 1.0; Partial Thromboplastin Time 28.1 Seconds (22.3-36.8); Prothrombin Time 13.2 Seconds (11.1-14.7)
[2025-05-30 15:16] LABS: NT Pro B Type Natriuretic Pept 67 pg/mL (19.9-100); Troponin I < 0.012 ng/mL (0.000-0.034)
--- OUTSIDE RECORDS SUMMARY | 2025-05-30 15:38 | XMS_ITS | Clinical Summary ---
Author Organization [facility] Address [address] [place] [address] Care Team Providers Care Wool Spotter Name Role Phone Piero Koroma MD Primary Care Provider [phone] Allergies No known active allergies Medications No known medications Encounters Date Type Department Care Team Description 05/30/2025 6:05 AM CDT - 05/30/2025 7:47 AM CDT Emergency [facility] [place] [address] Sven Hutchins MD Shortness Of Breath Discharge [...] 7:21 AM Narrative 05/30/2025 7:22 AM CDT [place] [address] SINGLE VIEW OF THE CHEST Clinical history: Shortness of breath Comparison: None A single view of the chest demonstrates the cardiac silhouette to be mildly enlarged. The pulmonary vessels are normally distributed. The Lungs are clear. No consolidations or effusions are seen. Procedure Note Liu Scott MD - 05/30/2025 [place] [address] SINGLE VIEW OF THE CHEST Clinical history: [...] RNA NEGATIVE NEGATIVE 05/30/2025 7:31 AM CDT [facility] Comment: NEGATIVE RESULTS DO NOT [...] SPECIMEN TYPE NASAL 05/30/2025 6:48 AM CDT [facility] NASAL STRUCTURE / Unknown 05/30/2025 6:42 AM CDT Sven Hutchins MD MICROBIOLOGY - GENERAL ORDERABL ES Final Result Performing Organization Address City/[facility]/ZIP Co de Phone Number [facility] [address] [place] [id number], * PRO-BRAIN NATRIURETIC PEPTIDE (05/30/2025 6:42 AM CDT) PRO-B TYPE NATRIURETIC PEPTIDE 66 <450 PG/ML 05/30/2025 7:35 AM CDT [facility] Comment: CUT POINTS ESTABLISHED BY [...] MD LABORATORY Final Result Performing Organization Address City/[facility]/ZIP Co de Phone Number [facility] [address] [place] [address], [place] [phone] * INFLUENZA A & B (05/30/2025 6:42 AM CDT) Pathologist [facility] SPECIMEN TYPE NASOPHARYNGEAL SWAB 05/30/2025 6:56 AM CDT [facility] INFLUENZA A NEGATIVE NEGATIVE 05/30/2025 7:32 AM CDT [facility] INFLUENZA B NEGATIVE NEGATIVE 05/30/2025 7:32 AM CDT [facility] Comment: Interpretation: Negative for Influenza [...] MICROBIOLOGY - GENERAL ORDERABL ES Final Result [facility] [address] [place] [address], [place] [phone] * (ABNORMAL) BASIC METABOLIC PANEL (05/30/2025 6:42 AM CDT) Pathologist [facility] GLUCOSE 100(H) 70 - 99 MG/DL 05/30/2025 7:35 AM CDT [facility] BUN 19(H) 7 - 18 MG/DL 05/30/2025 7:35 AM CDT [facility] CREATININE S/P/B 1.45(H) 0.7 - 1.3 MG/DL 05/30/2025 7:35 AM CDT [facility] SODIUM S/P/B 134(L) 136 - 145 MMOL/L 05/30/2025 7:35 AM CDT [facility] POTASSIUM S/P/B 3.8 3.5 - 5.1 MMOL/L 05/30/2025 7:35 AM CDT [facility] CHLORIDE S/P/B 103 97 - 115 MMOL/L 05/30/2025 7:35 AM CDT [facility] CO2 24.9 21 - 32 MMOL/L 05/30/2025 7:35 AM CDT [facility] CALCIUM S/P/B 9.7 8.5 - 10.1 MG/DL 05/30/2025 7:35 AM CDT [facility] ANION GAP 6.1 2 - 10 MMOL/L 05/30/2025 7:35 AM CDT [facility] BUN CREATININE RATIO 13.1 6 - 26 05/30/2025 7:35 AM CDT [facility] GFR ESTIMATE 50(L) >90 ML/MIN/1.7 3 M2 05/30/2025 7:35 AM CDT [facility] Comment: NOTE: eGFR is not [...] us Sven Hutchins MD LABORATORY Final Result [facility] [address] [place] [address], * (ABNORMAL) CBC W/DIFF AUTOMATED (05/30/2025 6:42 AM CDT) WBC 8.84 4.5 - 11.0 x10'3/uL 05/30/2025 7:11 AM CDT [facility] RBC 4.83 4.70 - 6.10 x10'6/uL 05/30/2025 7:11 AM CDT [facility] HGB 14.4 14.0 - 18.0 G/DL 05/30/2025 7:11 AM CDT [facility] HCT 42.0(L) 43.0 - 54.0 % 05/30/2025 7:11 AM CDT [facility] MCV 87.0 80.0 - 94.0 FL 05/30/2025 7:11 AM CDT [facility] MCH 29.8 27.0 - 31.0 PG 05/30/2025 7:11 AM CDT [facility] MCHC 34.3 32.0 - 36.0 G/DL 05/30/2025 7:11 AM CDT [facility] RDW 12.7 11.5 - 14.5 % 05/30/2025 7:11 AM CDT [facility] PLT 280 130 - 400 x10'3/uL 05/30/2025 7:11 AM CDT [facility] MPV 9.5 9.3 - 12.2 FL 05/30/2025 7:11 AM CDT [facility] DIFFERENTIAL TYPE AUTOMATED DIFFERENTIAL 05/30/2025 7:11 AM CDT [facility] NEUTROPHILS % 67.5 % 05/30/2025 7:11 AM CDT [facility] LYMPHOCYTES % 17.4 % 05/30/2025 7:11 AM CDT [facility] MONOCYTES % 12.0 % 05/30/2025 7:11 AM CDT [facility] EOSINOPHILS 1.8 % 05/30/2025 7:11 AM CDT [facility] BASOPHILS 0.8 % 05/30/2025 7:11 AM CDT [facility] IMMATURE GRANS % 0.5 % 05/30/20 7:11 AM CDT [facility] ABS. NEUTROPHILS 5.97 1.80 - 7.70 x10'3/uL 05/30/2025 7:11 AM CDT [facility] ABS. LYMPHOCYTES 1.54 1.00 - 4.80 x10'3/uL 05/30/2025 7:11 AM CDT [facility] ABS. MONOCYTES 1.06(H) 0.30 - 0.82 x10'3/uL 05/30/2025 7:11 AM CDT [facility] ABS. EOSINOPHILS 0.16 0.04 - 0.54 x10'3/uL 05/30/2025 7:11 AM CDT [facility] ABS. BASOPHILS 0.07 0.01 - 0.08 x10'3/uL 05/30/2025 7:11 AM CDT [facility] ABS. IMMATURE GRANULOCYTES 0.04 0.00 - 0.49 x10'3/uL 05/30/2025 7:11 AM CDT [facility] 05/30/2025 6:42 AM CDT Sven Hutchins MD LABORATORY Final Result [facility] [address] [place] [address], * THYROXINE, FREE (FT4) (05/30/2025 6:42 AM CDT) FREE T4 1.44 0.76 - 1.46 NG/DL 05/30/2025 7:35 AM CDT [facility] 05/30/2025 6:42 AM CDT Sven Hutchins MD LABORATORY Final Result Performing Organization Address City/[facility]/ZIP Co de Phone Number [facility] [address] [place] [address], [place] [phone] * TROPONIN, QUANT (05/30/2025 6:42 AM CDT) TROPONIN I HIGH SENSITIVITY 7 <79 ng/L 05/30/2025 7:35 AM CDT [facility] Comment: HIGH DOSES OF BIOTIN, TROPONIN-SPECIFIC AUTOANTIBODIES, AND ANTIBODY THERAPY CONTAINING HAMA MAY INTERFERE WITH THIS TEST RESULT. CORRELATION TO CLINICAL HISTORY AND PRESENTATION RECOMMENDED. 05/30/2025 6:42 AM CDT Sven Hutchins MD LABORATORY Final Result Performing Organization Address [facility] Co de Phone Number [facility] [address] [place] [address], [place] [phone] * (ABNORMAL) THYROID STIM HORMONE TSH (05/30/2025 6:42 AM CDT) TSH 0.224(L) 0.358 - 3.74 uIU/ML 05/30/2025 7:35 AM CDT [facility] Comment: HIGH DOSES OF BIOTIN MAY INTERFERE WITH THIS TEST RESULT. CORRELATION TO CLINICAL HISTORY AND PRESENTATION RECOMMENDED. 05/30/2025 6:42 AM CDT Sven Hutchins MD LABORATORY Final Result Performing Organization Address City/[facility]/ZIP Co de Phone Number [facility] [address] [place] [address], [place] [phone] * ECG 12 lead (05/30/2025 6:30 AM CDT) 05/30/2025 6:30 AM CDT Narrative [facility] - 05/30/2025 7:[address] 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1950 Requested By: SVEN HUTCHINS Order Number: [id number] Reading MANAS Montoya Measurements Intervals [place] Rate: 83 P: 6 [place]: 181 QRS: -19 QRSD: 97 T: 11 QT: 363 QTc: 428 Interpretive Statements SINUS RHYTHM VOLTAGE CRITERIA FOR LVH [MEETS CRITERIA IN ONE OF: R(aVL), S(V1),R(V5), R(V5/V6)+S(V1)] No previous ECG available for comparison us Sven Hutchins MD ECG ORDERABLES Final Result [facility] from Last 3 Months Insurance H[employer]AN MEDICARE Care Teams Wool Spotter Relationship Specialty Start Date End Date Piero Koroma MD [address] [place] [address] PCP - General FAMILY PRACTICE 05/30/25
--- OUTSIDE RECORDS SUMMARY | 2025-05-30 15:39 | XMS_ITS | Encounter Summary ---
Author Organization [facility] Address [address] [place], [place] [id number] Care Team Providers Care Sales And Merchandising Associate Name Role Phone Piero Koroma MD Primary Care Provider [phone] Encounter Details Date Type Department Care Team [...] AM CDT Natalie Pepe RN Active * [place] Suicide Severity Rating Scale (Screener/Recent Self-Report) Question Answer Date of Assessment Author Status 1. Wish to be (Past 1 Month) No 05/30/2025 6:40 AM CDT Esetfany Pepe RN A ctive 2. Non-Specific Active [...] documented as of this encounter Care Teams Sales And Merchandising Associate Relationship Specialty Start Date End Date Piero Koroma MD [address] [place] [id number] PCP - General FAMILY PRACTICE 05/30/25 documented as of this encounter
--- OUTSIDE RECORDS SUMMARY | 2025-05-30 15:39 | XMS_ITS | Encounter Summary ---
Author Organization [facility] Address [address] [place] [address] Care Team Providers Care Velvet Steamer Name Role Phone Piero Koroma MD Primary Care Provider [phone] Reason for Visit * Reason Comments Shortness Of Breath Encounter Details Date Type Department Care Team (Late st Contact Info) Description 05/30/2025 6:05 AM CDT - 05/30/2025 7:[address] [facility] Emergency Room [place], [place] [id number] Sven Hutchins MD [address] [place], [place] [id number] Shortness Of Breath Discharge Disposition: Home or [...] AM CDT Natalie Pepe RN Active * [facility] Suicide Severity Rating Scale (Screener/Recent Self-Report) Question [...] * Shortness of Breath (Dyspnea) Discharge Instructions (Citizen Of [place]) documented in this encounter ED Notes * Magnolia Wiley RN - 05/30/2025 7:17 AM CDT Came in to introduce myself as RN and went over inside sales account executive with pt. Pt endorses SOB when lying down as thereason he came to the ED. * Sven Hutchins MD - 05/30/2025 6:53 AM CDT [facility] [place] EMERGENCY DEPARTMENT ENCOUNTER Chief Complaint Chief Complaint Patient presents with Shortness Of Breath History of Present Illness Provider at Bedside Date/Time Event User Comments 05/30/25 0611 Provider at Bedside Assessing Patient AMANDA HUTCHINSKelle -- Jerardo Galeas is a 81-ugah-zbm-year-old male with a PMH of DM presents [...] of 05/30/25 [address] 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 No pertinent surgical history. [...] 7:21 AM Narrative 05/30/2025 7:22 AM CDT [place] [address] SINGLE VIEW OF THE CHEST Clinical history: Shortness of breath Comparison: None A single view of the chest demonstrates the cardiac silhouette to be mildly enlarged. The pulmonary vessels are normally distributed. The Lungs are clear. No consolidations or effusions are seen. Procedure Note Liu Scott MD - 05/30/2025 [place] [address] SINGLE VIEW OF THE CHEST Clinical history: [...] TYPE NASOPHARYNGEAL SWAB 05/30/2025 6:[address] [facility] INFLUENZA A NEGATIVE NEGATIVE 05/30/2025 7:[address] [facility] INFLUENZA B NEGATIVE NEGATIVE 05/30/2025 7:[address] [facility] Comment: Interpretation: Negative for Influenza A [...] SWAB / Unknown 05/30/2025 6:42 AM CDT [facility] MICROBIOLOGY - GENERAL ORDERABL ES Final Result Performing Organization Address City/[facility]/ZIP Co de Phone Number [facility] [address] [place] [address], * CORONAVIRUS (COVID 19) (05/30/2025 6:42 AM CDT) [facility] CORONAVIRUS SARS COV 2 RNA NEGATIVE NEGATIVE 05/30/2025 7:[address] [facility] Comment: NEGATIVE RESULTS DO NOT RULE [...] SPECIMEN TYPE NASAL 05/30/2025 6:[address] [facility] NASAL STRUCTURE / Unknown 05/30/2025 6:42 AM CDT Sven Hutchins MD MICROBIOLOGY - GENERAL ORDERABL ES Final Result Performing Organization Address City/[facility]/ZIP Co de Phone Number [facility] [address] [place] [address], [place] [phone] * THYROXINE, FREE (FT4) (05/30/2025 6:42 AM CDT) [facility] FREE T4 1.44 0.76 - 1.46 NG/DL 05/30/2025 7:[address] [facility] 05/30/2025 6:42 AM CDT Sven Hutchins MD LABORATORY Final Result Performing Organization Address [facility] Co de Phone Number [facility] [address] [place] [address], [place] [phone] * (ABNORMAL) THYROID STIM HORMONE TSH (05/30/2025 6:42 AM CDT) TSH 0.224(L) 0.358 - 3.74 uIU/ML 05/30/2025 7:[address] [facility] Comment: HIGH DOSES OF BIOTIN MAY INTERFERE WITH THIS TEST RESULT. CORRELATION TO CLINICAL HISTORY AND PRESENTATION RECOMMENDED. 05/30/2025 6:42 AM CDT Sven Hutchins MD LABORATORY Final Result Performing Organization Address [facility] Co de Phone Number [facility] [address] [place] [address], [place] [phone] * PRO-BRAIN NATRIURETIC PEPTIDE (05/30/2025 6:42 AM CDT) PRO-B TYPE NATRIURETIC PEPTIDE 66 <450 PG/ML 05/30/2025 7:[address] [facility] Comment: CUT POINTS ESTABLISHED BY INTERNATIONAL [...] MD LABORATORY Final Result Performing Organization Address City/[facility] Co de Phone Number [facility] [address] [place] [address], [place] [phone] * TROPONIN, QUANT (05/30/2025 6:42 AM CDT) TROPONIN I HIGH SENSITIVITY 7 <79 ng/L 05/30/2025 7:[address] [facility] Comment: HIGH DOSES OF BIOTIN, TROPONIN-SPECIFIC AUTOANTIBODIES, AND ANTIBODY THERAPY CONTAINING HAMA MAY INTERFERE WITH THIS TEST RESULT. CORRELATION TO CLINICAL HISTORY AND PRESENTATION RECOMMENDED. 05/30/2025 6:42 AM CDT Sven Hutchins MD LABORATORY Final Result Performing Organization Address [facility] Co de Phone Number [facility] [address] [place] [address], [place] [phone] * (ABNORMAL) BASIC METABOLIC PANEL (05/30/2025 6:42 AM CDT) GLUCOSE 100(H) 70 - 99 MG/DL 05/30/2025 7:[address] [facility] BUN 19(H) 7 - 18 MG/DL 05/30/2025 7:[address] [facility] CREATININE S/P/B 1.45(H) 0.7 - 1.3 MG/DL 05/30/2025 7:[address] [facility] SODIUM S/P/B 134(L) 136 - 145 MMOL/L 05/30/2025 7:[address] [facility] POTASSIUM S/P/B 3.8 3.5 - 5.1 MMOL/L 05/30/2025 7:[address] [facility] CHLORIDE S/P/B 103 97 - 115 MMOL/L 05/30/2025 7:[address] [facility] CO2 24.9 21 - 32 MMOL/L 05/30/2025 7:[address] [facility] CALCIUM S/P/B 9.7 8.5 - 10.1 MG/DL 05/30/2025 7:[address] [facility] ANION GAP 6.1 2 - 10 MMOL/L 05/30/2025 7:[address] [facility] BUN CREATININE RATIO 13.1 6 - 26 05/30/2025 7:[address] [facility] GFR ESTIMATE 50(L) >90 ML/MIN/1.7 3 M2 05/30/2025 7:[address] [facility] Comment: NOTE: eGFR is not calculated for patients <18 years of age or gender unknown. This is an estimated GFR calculation using the new CKD EPI creatinine equation without race and so does not require a correction factor for race. This estimated GFR should not be used for calculating drug doses. 05/30/2025 6:42 AM CDT Sven Hutchins MD LABORATORY Final Result [facility] [address] [place] [address], [place] [phone] * (ABNORMAL) CBC W/DIFF AUTOMATED (05/30/2025 6:42 AM CDT) WBC 8.84 4.5 - 11.0 x10'3/uL 05/30/2025 7:[address] [facility] RBC 4.83 4.70 - 6.10 x10'6/uL 05/30/2025 7:[address] [facility] HGB 14.4 14.0 - 18.0 G/DL 05/30/2025 7:[address] [facility] HCT 42.0(L) 43.0 - 54.0 % 05/30/2025 7:[address] [facility] MCV 87.0 80.0 - 94.0 FL 05/30/2025 7:[address] [facility] MCH 29.8 27.0 - 31.0 PG 05/30/2025 7:[address] [facility] MCHC 34.3 32.0 - 36.0 G/DL 05/30/2025 7:[address] [facility] RDW 12.7 11.5 - 14.5 % 05/30/2025 7:[address] [facility] PLT 280 130 - 400 x10'3/uL 05/30/2025 7:[address] [facility] MPV 9.5 9.3 - 12.2 FL 05/30/2025 7:[address] [facility] DIFFERENTIAL TYPE AUTOMATED DIFFERENTIAL 05/30/2025 7:[address] [facility] NEUTROPHILS % 67.5 % 05/30/2025 7:[address] [facility] LYMPHOCYTES % 17.4 % 05/30/2025 7:[address] [facility] MONOCYTES % 12.0 % 05/30/2025 7:[address] [facility] EOSINOPHILS 1.8 % 05/30/2025 7:[address] [facility] BASOPHILS 0.8 % 05/30/2025 7:[address] [facility] IMMATURE GRANS % 0.5 % 05/30/20 7:[address] [facility] ABS. NEUTROPHILS 5.97 1.80 - 7.70 x10'3/uL 05/30/2025 7:[address] [facility] ABS. LYMPHOCYTES 1.54 1.00 - 4.80 x10'3/uL 05/30/2025 7:[address] [facility] ABS. MONOCYTES 1.06(H) 0.30 - 0.82 x10'3/uL 05/30/2025 7:[address] [facility] ABS. EOSINOPHILS 0.16 0.04 - 0.54 x10'3/uL 05/30/2025 7:[address] [facility] ABS. BASOPHILS 0.07 0.01 - 0.08 x10'3/uL 05/30/2025 7:[address] [facility] ABS. IMMATURE GRANULOCYTES 0.04 0.00 - 0.49 x10'3/uL 05/30/2025 7:[address] [facility] 05/30/2025 6:42 AM CDT us Sven Hutchins MD LABORATORY Final Result 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 RAD documented in this encounter Visit Diagnoses Diagnosis SOB (shortness of breath)- Primary Shortness of breath documented in this encounter Additional Health Concerns Infection Onset Date Last Indicated Resolved Time COVID-19 Rule Out 05/30/2025 05/30/2025 05/30/2025 7:32 AM CDT Respiratory Rule Out 05/30/2025 05/30/2025 025 7:32 AM CDT documented as of this encounter Care Teams Velvet Steamer Relationship Specialty Start Date End Date Piero Koroma MD [address] [facility] [address] [place] [address] PCP - General FAMILY PRACTICE 05/30/25 documented as of this encounter
[2025-05-30 15:44] LABS: Influenza A QL RT-PCR Negative (Negative); Influenza B QL RT-PCR Negative (Negative); RSV RNA, RT-PCR Negative (Negative); SARS-CoV-2 RNA PCR Negative (Negative)
--- NOTE | 2025-05-30 15:59 | ED_ITS ---
HPI - General Adult General Chief complaint: Upper Respiratory Infection <Aung Kaur MD - Last Filed: 05/30/25 17:18> Stated complaint: cough congestion <Aung Kaur MD - Last Filed: 05/30/25 17:18> Time Seen by Provider: 05/30/25 13:43 <Aung Kaur MD - Last Filed: 05/30/25 17:18> History of Present Illness HPI narrative: Patient is a 75-year-old male who presents ER with his fiancee for evaluation. Patient for the last month has had a cough but is also become more confused since had some poor balance with walking. Seen at [facility] last night for the cough and they did blood work in x-ray and he was able to be discharged home. Jeffrey concerned about his confusion the fact they could not find his PCPs office today. Patient is without complaints. He is oriented x3 but does not seem to be able to verbalize the situation he is currently and. History mainly obtained from the significant other. <Aung Kaur MD - Last Filed: 05/30/25 17:18> Related Data Home medications: Home Medications ?Medication ?Instructions ?Recorded ?Confirmed ?Last Taken ?Type Adult Low Dose Aspirin 81 mg PO DAILY 03/17/22 03/12/25 03/16/22 History Cinnamon 2,000 mg PO DAILY 03/17/22 03/12/25 03/16/22 History Fish Oil 4,800 mg PO DAILY 03/17/22 03/12/25 03/16/22 History Move Free Joint Health 2 tablet PO DAILY 03/17/22 03/12/25 03/16/22 History Tart Gonzales Extract 1,000 mg PO DAILY 03/17/22 03/12/25 03/16/22 History Vitamin B-12 5,000 mcg PO DAILY 03/17/22 03/12/25 03/16/22 History cetirizine 10 mg capsule (Zyrtec) 10 mg PO DAILY 03/17/22 03/12/25 03/16/22 History <Aung Kaur MD - Last Filed: 05/30/25 17:18> Allergies/adverse reactions: Allergies Allergy/AdvReac Type Severity Reaction Status Date / Time No Known Allergies Allergy Verified 05/30/25 13:08 <Aung Kaur MD - Last Filed: 05/30/25 17:18> Review of Systems 2 Review of Systems: All systems reviewed & are unremarkable except as noted in HPI and below <Aung Kaur MD - Last Filed: 05/30/25 17:18> Constitutional: Constitutional: Reports no additional constitutional complaints <Aung Kaur MD - Last Filed: 05/30/25 17:18> Cardiovascular: Cardiovascular: Reports no additional cardiovascular complaints <Aung Kaur MD - Last Filed: 05/30/25 17:18> Respiratory: Respiratory: Reports no additional respiratory complaints < Aung Kaur MD - Last Filed: 05/30/25 17:18> Gastrointestinal: Gastrointestinal: Reports no additional gastrointestinal complaints <Aung Kaur MD - Last Filed: 05/30/25 17:18> Neurologic: Reports system reviewed and no additional complaints, except as documented <Aung Kaur MD - Last Filed: 05/30/25 17:18> [facility] Past Medical History Medical History: Medical History Seasonal allergies Hyperlipidemia Hypertension CKD (chronic kidney disease) Hy kid NOS w cr kid I-IV DM renal manif type II Adult hypothyroidism <Aung Kaur MD - Last Filed: 05/30/25 17:18> Surgical History Surgical History: Surgical History History of tonsillectomy and adenoidectomy <Aung Kaur MD - Last Filed: 05/30/25 17:18> Family History Family History: Family History Father Family history of lung cancer Mother Heart attack Grandparent Diabetes mellitus Sibling Diabetes mellitus <Aung Kaur MD - Last Filed: 05/30/25 17:18> Social History Social History: Social History Social History: Mr. Galeas lives at home with his . He is independent in his daily activities. He is retired. His PCP is Dr. Koroma. He designates his , Ilana, to be his surrogate decision maker. He would like to be a full code. Smoking packs per day: 2 Smoking cigarettes per day: 40.0 Years smoked: 32 Smoking pack-years: 64.00 Smoking status: Former smoker Tobacco type: cigarettes Second hand tobacco smoke exposure: No Smoking end date: 10/23/96 Alcohol intake: current Alcohol use details: 4-5 beers/week Substance use: never Substance use type: does not use Do You Feel Safe in your Home?: Yes Lack of Transportation: No Lack of Food: Never True Current Housing: I Have Housing Concerned About Future Housing: No Difficulty Paying Gas/Electric Bills: No Difficulty Paying for Meds: No Currently Unemployed: YES Education: Don't Know Difficulty w/ Childcare or Family Care: No Living arrangements: with family Occupation/Education: retired Gender identity (if verbalized by the patient): Male Sexual Orientation (if Verbalized by the Patient): Straight or Heterosexual Spiritual care concerns: No <Aung Kaur MD - Last Filed: 05/30/25 17:18> Exam 2 Narrative: GENERAL: Well-appearing, well-nourished, and in no acute distress. HEAD: Normocephalic, atraumatic. EYES: PERRL and EOMI. ENT: Mucous membranes moist. CHEST: Clear to auscultation. No respiratory distress. HEART: Regular rate and rhythm. Normal peripheral pulses. ABDOMEN: Soft, nontender, nondistended. EXTREMITIES: Normal range of motion. No edema. SKIN: Warm, dry, no rash. NEURO: NIH stroke scale is 0. Alert and oriented x3. <Aung Kaur MD - Last Filed: 05/30/25 17:18> Course Course Emergency Course: CT imaging shows subacute stroke versus encephalitis versus neoplasm. Discussed transfer to another facility where neurology would be available. [place]. Patient is on the [facility] list at [facility]. <Aung Kaur MD - Last Filed: 05/30/25 17:18> Reevaluation(s) Reevaluation #1: 12:00 p.m. 05/31/2025-patient is complaining of some increased shortness of breath. Patient is saturating well on room air but does have some dyspnea on exertion. Patient denies any associated chest pain. Patient does have some diminished breath sounds bilaterally. Albuterol breathing treatment was ordered. CTA PE study was also ordered. Patient did have a chest x-ray yesterday that showed no acute cardiopulmonary abnormality. 3:58 p.m. 05/31/2025-[facility] called and stated they do have a bed available for the patient. Case was discussed with Dr. Brian <Jamarcus Tamez MD - Last Filed: 05/31/25 18:13> Vital Signs Vital signs: Vital Signs Temperature 97.6 F 05/30/25 13:11 Pulse Rate 87 05/30/25 13:11 Respiratory Rate 16 05/30/25 13:11 Blood Pressure 130/73 05/30/25 13:11 Pulse Oximetry 98 05/30/25 13:11 Oxygen Delivery Room Air 05/30/25 13:11 Temperature 97.8 F 05/31/25 16:36 Pulse Rate 98 05/31/25 16:36 Respiratory Rate 20 05/31/25 16:36 Blood Pressure 128/77 05/31/25 16:36 Pulse Oximetry 97 05/31/25 16:36 Oxygen Delivery Room Air 05/31/25 12:03 <Aung Kaur MD - Last Filed: 05/30/25 17:18> Vital Signs Temperature 97.6 F 05/30/25 13:11 Pulse Rate 87 05/30/25 13:11 Respiratory Rate 16 05/30/25 13:11 Blood Pressure 130/73 05/30/25 13:11 Pulse Oximetry 98 05/30/25 13:11 Oxygen Delivery Room Air 05/30/25 13:11 Temperature 97.8 F 05/31/25 16:36 Pulse Rate 98 05/31/25 16:36 Respiratory Rate 20 05/31/25 16:36 Blood Pressure 128/77 05/31/25 16:36 Pulse Oximetry 97 05/31/25 16:36 Oxygen Delivery Room Air 05/31/25 12:03 <Jamarcus Tamez MD - Last Filed: 05/31/25 18:13> Medical Decision Making Vital Signs Vital Signs: Vital Signs Temperature 97.6 F 05/30/25 13:11 Pulse Rate 87 05/30/25 13:11 Respiratory Rate 16 05/30/25 13:11 Blood Pressure 130/73 05/30/25 13:11 Pulse Oximetry 98 05/30/25 13:11 Oxygen Delivery Room Air 05/30/25 13:11 Temperature 97.8 F 05/31/25 16:36 Pulse Rate 98 05/31/25 16:36 Respiratory Rate 20 05/31/25 16:36 Blood Pressure 128/77 05/31/25 16:36 Pulse Oximetry 97 05/31/25 16:36 Oxygen Delivery Room Air 05/31/25 12:03 <Augn Kaur MD - Last Filed: 05/30/25 17:18> Vital Signs Temperature 97.6 F 05/30/25 13:11 Pulse Rate 87 05/30/25 13:11 Respiratory Rate 16 05/30/25 13:11 Blood Pressure 130/73 05/30/25 13:11 Pulse Oximetry 98 05/30/25 13:11 Oxygen Delivery Room Air 05/30/25 13:11 Temperature 97.8 F 05/31/25 16:36 Pulse Rate 98 05/31/25 16:36 Respiratory Rate 20 05/31/25 16:36 Blood Pressure 128/77 05/31/25 16:36 Pulse Oximetry 97 05/31/25 16:36 Oxygen Delivery Room Air 05/31/25 12:03 <Jamarcus Tamez MD - Last Filed: 05/31/25 18:13> Lab Data Result diagrams: 05/30/25 14:47 05/30/25 14:47 <Aung Kaur MD - Last Filed: 05/30/25 17:18> Labs: Lab Results 05/30/25 Range/Units 14:47 WBC 7.5 (4.5-10.0) K/mm3 RBC 4.95 (4.6-6.20) M/mm3 Hgb 14.5 (14.0-18.0) g/dL Hct 43.9 (42.0-52.0) % MCV 88.7 (80-100) fl MCH 29.3 (26-34) pg MCHC 33.0 (32-36) g/dl RDW 12.8 (11.5-14.5) % Plt Count 282 (150-375) k/mm3 MPV 9.1 (7.4-10.4) fl Immature Gran % (Auto) 0.3 (0-0.5) % Neut % (Auto) 61.2 (45.5-73.1) % Lymph % (Auto) 21.0 (18.3-44.2) % [place] % (Auto) 14.5 H (2.6-8.5) % Eos % (Auto) 2.1 (0-4.4) % Baso % (Auto) 0.9 (0.2-1.2) % Lymph # (Auto) 1.57 (0.9-3.2) K/mm3 [place] # (Auto) 1.1 H (0.1-0.6) K/mm3 Eos # (Auto) 0.2 (0-0.3) K/mm3 Baso # (Auto) 0.1 (0.0-0.1) K/mm3 Abs Immat Gran (auto) 0.02 (0.00-0.031) K/mm3 Absolute Neuts (auto) 4.6 (1.3-6.7) K/mm3 Absolute Nucleated RBC 0.000 (0.0-0.012) K/mm3 Nucleated RBC % 0.0 (0.0-0.2) % PT 13.2 (11.1-14.7) Seconds INR 1.0 APTT 28.1 (22.3-36.8) Seconds Sodium 137 (137-145) mmol/L Potassium 4.4 (3.4-5.0) mmol/L Chloride 99 (98-107) mmol/L Carbon Dioxide 23 (22-30) mmol/L Anion Gap 15 H (4-12) mmol/L BUN 18 (9-20) mg/dL Creatinine 1.36 H (0.7-1.3) mg/dL Estim Creat Clear Calc 48 ml/min Estimated GFR 51 L (59 - ) Glucose 98 (65-110) mg/dL Calcium 9.7 (8.4-10.2) mg/dL Total Bilirubin 1.2 (0.2-1.3) mg/dL AST 43 (17-59) U/L ALT 26 (6-50) U/L Alkaline Phosphatase 69 (38-126) U/L Troponin I < 0.012 (0.000-0.034) ng/mL NT-Pro-B Natriuret Pep 67 (19.9-100) pg/mL Total Protein 8.4 H (6.3-8.2) g/dL Albumin 4.7 (3.5-5.1) g/dL Lipase 109 (23-300) U/L Influenza A (RT-PCR) Negative (Negative) Influenza B (RT-PCR) Negative (Negative) RSV (RT-PCR) Negative (Negative) SARS-CoV-2 RNA (RT-PCR) Negative (Negative) <Aung Kaur MD - Last Filed: 05/30/25 17:18> Lab Results 05/30/25 Range/Units 14:47 WBC 7.5 (4.5-10.0) K/mm3 RBC 4.95 (4.6-6.20) M/mm3 Hgb 14.5 (14.0-18.0) g/dL Hct 43.9 (42.0-52.0) % MCV 88.7 (80-100) fl MCH 29.3 (26-34) pg MCHC 33.0 (32-36) g/dl RDW 12.8 (11.5-14.5) % Plt Count 282 (150-375) k/mm3 MPV 9.1 (7.4-10.4) fl Immature Gran % (Auto) 0.3 (0-0.5) % Neut % (Auto) 61.2 (45.5-73.1) % Lymph % (Auto) 21.0 (18.3-44.2) % [place] % (Auto) 14.5 H (2.6-8.5) % Eos % (Auto) 2.1 (0-4.4) % Baso % (Auto) 0.9 (0.2-1.2) % Lymph # (Auto) 1.57 (0.9-3.2) K/mm3 [place] # (Auto) 1.1 H (0.1-0.6) K/mm3 Eos # (Auto) 0.2 (0-0.3) K/mm3 Baso # (Auto) 0.1 (0.0-0.1) K/mm3 Abs Immat Gran (auto) 0.02 (0.00-0.031) K/mm3 Absolute Neuts (auto) 4.6 (1.3-6.7) K/mm3 Absolute Nucleated RBC 0.000 (0.0-0.012) K/mm3 Nucleated RBC % 0.0 (0.0-0.2) % PT 13.2 (11.1-14.7) Seconds INR 1.0 APTT 28.1 (22.3-36.8) Seconds Sodium 137 (137-145) mmol/L Potassium 4.4 (3.4-5.0) mmol/L Chloride 99 (98-107) mmol/L Carbon Dioxide 23 (22-30) mmol/L Anion Gap 15 H (4-12) mmol/L BUN 18 (9-20) mg/dL Creatinine 1.36 H (0.7-1.3) mg/dL Estim Creat Clear Calc 48 ml/min Estimated GFR 51 L (59 - ) Glucose 98 (65-110) mg/dL Calcium 9.7 (8.4-10.2) mg/dL Total Bilirubin 1.2 (0.2-1.3) mg/dL AST 43 (17-59) U/L ALT 26 (6-50) U/L Alkaline Phosphatase 69 (38-126) U/L Troponin I < 0.012 (0.000-0.034) ng/mL NT-Pro-B Natriuret Pep 67 (19.9-100) pg/mL Total Protein 8.4 H (6.3-8.2) g/dL Albumin 4.7 (3.5-5.1) g/dL Lipase 109 (23-300) U/L Influenza A (RT-PCR) Negative (Negative) Influenza B (RT-PCR) Negative (Negative) RSV (RT-PCR) Negative (Negative) SARS-CoV-2 RNA (RT-PCR) Negative (Negative) <Jamarcus Tamez MD - Last Filed: 05/31/25 18:13> Imaging Data Radiologist's impression: ITS Impressions Chest X-Ray 05/30/25 15:14 IMPRESSION: 1. No acute cardiopulmonary disease. Head CT 05/30/25 15:18 IMPRESSION: 1. Multiple areas of geographic hypodensity including the parietal and temporal lobes as well as the right basal ganglia. No significant mass effect or associated hemorrhage. Differential diagnosis includes subacute or chronic infarcts, encephalitis and neoplasm including metastatic disease. Recommend MRI brain with and without contrast. <Aung Kaur MD - Last Filed: 05/30/25 17:18> ECG Data EKG #1: ECG completion date: 05/30/25 <Aung Kaur MD - Last Filed: 05/30/25 17:18> ECG completion time: 14:48 <Aung Kaur MD - Last Filed: 05/30/25 17:18> EKG Interpretation: normal rate (85), sinus rhythm, normal QRS, normal QT and NL axis < Aung Kaur MD - Last Filed: 05/30/25 17:18> Discharge Plan Discharge Clinical Impression: Abnormal CT scan of head <Aung Kaur MD - Last Filed: 05/30/25 17:18> Patient Disposition: Acute Care Hospital <Aung Kaur MD - Last Filed: 05/30/25 17:18> Condition: Stable <Aung Kaur MD - Last Filed: 05/30/25 17:18> Patient Language: Lao <Aung Kaur MD - Last Filed: 05/30/25 17:18> Prescriptions: No Action benzonatate 200 mg capsule 200 mg PO TID PRN (Reason: cough) Qty: 20 0RF fluticasone propionate [Flonase Allergy Relief] 50 mcg/actuation spray,suspension 1 spray intranasal BID Qty: 16 0RF Rx Instructions: administer into each nostril Adult Low Dose Aspirin 81 mg PO DAILY Zyrtec 10 mg Capsule 10 mg PO DAILY Cinnamon 2,000 mg PO DAILY Fish Oil 4,800 mg PO DAILY Move Free Joint Health 2 tablet PO DAILY Tart Gonzales Extract 1,000 mg PO DAILY Vitamin B-12 5,000 mcg PO DAILY fluticasone propionate 50 mcg/actuation spray,suspension See Rx Instructions .ROUTE .COMPLEX Qty: 16 5RF Dose Instruction: INSTILL 1 SPRAY INRANASALLY DAILY INTO EACH NOSTRIL Rx Instructions: INSTILL 1 SPRAY INRANASALLY DAILY INTO EACH NOSTRIL lisinopril 20 mg tablet 20 mg PO BID Qty: 180 2RF metformin 500 mg tablet See Rx Instructions .ROUTE .COMPLEX Qty: 180 1RF Dose Instruction: TAKE 1 TABLET BY MOUTH TWICE A DAY Rx Instructions: TAKE 1 TABLET BY MOUTH TWICE A DAY atorvastatin 10 mg tablet See Rx Instructions .ROUTE .COMPLEX Qty: 90 1RF Dose Instruction: TAKE 1 TABLET BY MOUTH EVERY DAY Rx Instructions: TAKE 1 TABLET BY MOUTH EVERY DAY amlodipine 5 mg tablet See Rx Instructions .ROUTE .COMPLEX Qty: 90 1RF Dose Instruction: TAKE 1 TABLET BY MOUTH EVERY DAY Rx Instructions: TAKE 1 TABLET BY MOUTH EVERY DAY levothyroxine 100 mcg tablet See Rx Instructions .ROUTE .COMPLEX Qty: 90 1RF Dose Instruction: TAKE 1 TABLET BY MOUTH EVERY DAY Rx Instructions: TAKE 1 TABLET BY MOUTH EVERY DAY omeprazole 20 mg capsule,delayed release(DR/EC) See Rx Instructions .ROUTE .COMPLEX Qty: 90 1RF Dose Instruction: TAKE 1 CAPSULE BY MOUTH EVERY DAY Rx Instructions: TAKE 1 CAPSULE BY MOUTH EVERY DAY metoprolol succinate 25 mg tablet extended release 24 hr See Rx Instructions .ROUTE .COMPLEX Qty: 90 1RF Dose Instruction: TAKE 1 TABLET BY MOUTH EVERY DAY Rx Instructions: TAKE 1 TABLET BY MOUTH EVERY DAY <Aung Kaur MD - Last Filed: 05/30/25 17:18> Follow-up/Referrals: Piero Koroma MD [Primary Care Provider] - <Aung Kaur MD - Last Filed: 05/30/25 17:18>
--- NOTE | 2025-05-30 17:38 | PC.NURSE ---
RN called and ordered a dinner tray.
[2025-05-31] VITALS (18 sets, daily range): BP systolic 97–147; BP diastolic 32–86; PULSE 78–117; RESP 15–20; TEMP 36.1–36.6; O2SAT 95–100
--- NOTE | 2025-05-31 07:45 | PC.NURSE ---
Pt noted to be unsteady on feet, declines using call light for restroom, ambulates self. This RN discussed fall risk and gave urinal at bedside as well as call light handed to pt and instructed. Pt verbalized understanding. Ordered breakfast tray for pt. Pt declines getting in a gown, belongings (such as shoes) bagged for pt transfer.
[2025-05-31] MEDS: ALBUTEROL SULFATE NEB 2.5 MG/3 ML INH INHALATION (12:28)
--- NOTE | 2025-05-31 12:40 | PC.NURSE ---
Pt has 242 mls of urine per bladder scan, pt is declining to use a urinal (this RN offered assistance and encouraged to try), pt refusing states he doesnt have to go.
== END 2025-05-31 17:33 | disposition short-term general hospital (02) ==
PROVIDERS: Emergency Provider Emergency Medicine; PCP Family Medicine
DX: R93.0 Abnormal findings on diagnostic imaging of skull and head, not elsewhere classified (principal); R06.02 Shortness of breath; E78.5 Hyperlipidemia, unspecified; N18.9 Chronic kidney disease, unspecified; E11.22 Type 2 diabetes mellitus with diabetic chronic kidney disease; I12.9 Hypertensive chronic kidney disease with stage 1 through stage 4 chronic kidney disease, or unspecified chronic kidney disease; E03.9 Hypothyroidism, unspecified; Z87.891 Personal history of nicotine dependence; Z20.822 Contact with and (suspected) exposure to COVID-19
CPT/HCPCS: 36415; 70450; 71046; 71275; 80053; 83690; 83880; 84484; 85025; 85610; 85730; 87637; 93005; 99285; A9270; Q9967